=== PATIENT | male | born 1975 | race Two or more races ===

== ENCOUNTER 2019-09-15 03:30 | Emergency (ER) | payer BC, SELFPAY ==
--- NOTE | 2019-09-15 04:01 | EDM.PDOC ---
ED HPI GENERAL MEDICAL PROBLEM - General Chief Complaint: Chest Pain Stated Complaint: [facility] Time Seen by Provider: 09/15/19 03:37 Source of Information: Reports: Patient, Family (Son) History Limitations: Reports: No Limitations - History of Present Illness INITIAL COMMENTS - FREE TEXT/NARRATIVE: Mr. Rincon is a very pleasant 44 or old man with a past medical history significant for hypertension and untreated dyslipidemia, who states that he woke up around 01:30 to 02:00 this morning in order to urinate. He then went back to bed, but woke up again shortly thereafter having to urinate again. He returned to bed the second time, he developed sudden onset left-sided chest pressure and entire left upper extremity tingling. Initially, the sensation in his left chest was a pain, however, after about 5 minutes, it subsided into a discomfort, which has persisted. His left upper extremity tingling has persisted unchanged. In addition, the patient states that he felt dyspneic, lightheaded, and nauseated. No diaphoresis or sense of impending doom. No prior similar symptoms. EMS performed an ECG, which showed no ischemic changes. EMS gave the patient nitroglycerin spray, IV Zofran, and a baby aspirin. Patient reports that his symptoms did not change following those treatments. 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 He reports that he has never suffered chest discomfort or dyspnea while working. The patient's PCP is Dr. Toby Lopez. The patient has not received an influenza vaccine, but declined an offer for one here today. Left Chest Pain Score (Numeric/FACES): 2 - Related Data Allergies Allergy/AdvReac Type Severity Reaction Status Date / Time morphine Allergy Bradycardia Verified 09/15/19 03:39 Home Meds: Home Meds Losartan/Hydrochlorothiazide [Hyzaar 50-12.5 Tablet] 12.5 mg PO DAILY 09/15/19 [ History] Past Medical History Cardiovascular History: Reports: High Cholesterol (untreated), Hypertension Endocrine/Metabolic History: Reports: Obesity/BMI 30+ - Past Surgical History HEENT Surgical History: Reports: Oral Surgery (wisdom teeth extraction) GI Surgical History: Reports: Cholecystectomy (2010), Other (See Below) ( Hemorrhoidectomy x 2) Neurological Surgical History: Reports: Lumbar Spine (Microdiscectomy) Musculoskeletal Surgical History: Reports: Arthroscopic Knee (left) Social & Family History - Tobacco Use Smoking Status *Q: Former Smoker Month/Year Tobacco Last Used: Smoked as a teenager - Caffeine Use Caffeine Use: Reports: Coffee, Soda - Alcohol Use Alcohol Use History: Yes Alcohol Use Frequency: Socially - Recreational Drug Use Recreational Drug Use: Yes Drug Use in Last 12 Months: No Recreational Drug Type: Reports: Marijuana/Hashish (last smoked 1994) - Living Situation & Occupation Living situation: Reports: , with Spouse, with Family (3 kids + mother-in -law) Occupation: Employed ([employer]) ED ROS GENERAL - Review of Systems Review Of Systems: Comprehensive ROS is negative, except as noted in HPI. Musculoskeletal: Reports: Back Pain (chronic) ED EXAM, GENERAL - Physical Exam Exam: See Below Exam Limited By: No Limitations General Appearance: Alert, WD/WN, No Apparent Distress Eye Exam: Bilateral Eye: EOMI, Normal Inspection Ears: Normal External Exam, Hearing Grossly Normal Nose: Normal Inspection Throat/Mouth: Normal Inspection, Normal Lips, Normal Voice, No Airway Compromise Head: Atraumatic, Normocephalic Neck: Normal Inspection, Full Range of Motion Respiratory/Chest: No Respiratory Distress, Lungs Clear, Normal Breath Sounds, No Accessory Muscle Use, Other (Reproducible tenderness to palpation of the patient's left pectoralis muscle) Cardiovascular: Normal Peripheral Pulses, Regular Rate, Rhythm, No Edema, No Gallop, No JVD, No Murmur, No Rub Peripheral Pulses: 4+: Radial (L), Radial (R) GI/Abdominal: Normal Bowel Sounds, Soft, Non-Tender (including the epigastrium) , No Organomegaly, No Distention, No Abnormal Bruit, No Mass (Male) Exam: Deferred Rectal (Males) Exam: Deferred Back Exam: Normal Inspection, Full Range of Motion, NT Extremities: Normal Inspection, Normal Range of Motion, No Pedal Edema, Normal Capillary Refill Neurological: Alert, Oriented, Normal Cognition, No Motor/Sensory Deficits Psychiatric: Normal Affect Skin Exam: Warm, Dry, Intact, Normal Color, No Rash EKG INTERPRETATION EKG Date: 09/15/19 Time: 03:29 Rhythm: NSR Rate (Beats/Min): 76 [place]: Normal P-Wave: Present QRS: Normal (Late transition) ST-T: Normal QT: Normal Comparison: NA - No Prior EKG Course - Vital Signs Last Recorded V/S: Last Vital Signs Temp 36.6 C 09/15/19 03:32 Pulse 80 09/15/19 03:32 Resp 12 09/15/19 03:32 BP 141/96 H 09/15/19 03:32 Pulse Ox 96 09/15/19 03:32 - Orders/Labs/Meds Orders: Active Orders 24 hr Category Date Time Status EKG Documentation Completion [RC] STAT Care 09/15/19 03:54 Active Labs: Laboratory Tests 09/15/19 09/15/19 09/15/19 Range/Units 04:10 04:10 04:10 WBC 7.86 (4.23-9.07) K/mm3 RBC 5.51 (4.63-6.08) M/mm3 Hgb 16.5 (13.7-17.5) gm/dl Hct 48.1 (40.1-51.0) % MCV 87.3 (79.0-92.2) fl MCH 29.9 (25.7-32.2) pg MCHC 34.3 (32.2-35.5) g/dl RDW Std Deviation 44.3 H (35.1-43.9) fL Plt Count 206 (163-337) K/mm3 MPV 10.0 (9.4-12.3) fl Neut % (Auto) 61.0 (34.0-67.9) % Lymph % (Auto) 24.0 (21.8-53.1) % [place] % (Auto) 11.1 (5.3-12.2) % Eos % (Auto) 2.8 (0.8-7.0) Baso % (Auto) 0.3 (0.1-1.2) % Neut # (Auto) 4.80 (1.78-5.38) K/mm3 Lymph # (Auto) 1.89 (1.32-3.57) K/mm3 [place] # (Auto) 0.87 H (0.30-0.82) K/mm3 Eos # (Auto) 0.22 (0.04-0.54) K/mm3 Baso # (Auto) 0.02 (0.01-0.08) K/mm3 D-Dimer, Quantitative < 0.19 L (0.19-0.50) mg/L Sodium 140 (136-145) mEq/L Potassium 3.4 L (3.5-5.1) mEq/L Chloride 104 (98-107) mEq/L Carbon Dioxide 25 (21-32) mEq/L Anion Gap 14.4 (5-15) BUN 15 (7-18) mg/dL Creatinine 1.0 (0.7-1.3) mg/dL Est Cr Clr Drug Dosing 107.32 mL/min Estimated GFR (MDRD) > 60 (>60) mL/min BUN/Creatinine Ratio 15.0 (14-18) Glucose 122 H (74-106) mg/dL Calcium 9.2 (8.5-10.1) mg/dL Total Bilirubin 0.4 (0.2-1.0) mg/dL AST 16 (15-37) U/L ALT 46 (16-63) U/L Alkaline Phosphatase 88 (46-116) U/L Troponin I < 0.017 (0.00-0.056) ng/mL Total Protein 7.1 (6.4-8.2) g/dl Albumin 3.7 (3.4-5.0) g/dl Globulin 3.4 gm/dL Albumin/Globulin Ratio 1.1 (1-2) 09/15/19 Range/Units 06:23 WBC (4.23-9.07) K/mm3 RBC (4.63-6.08) M/mm3 Hgb (13.7-17.5) gm/dl Hct (40.1-51.0) % MCV (79.0-92.2) fl MCH (25.7-32.2) pg MCHC (32.2-35.5) g/dl RDW Std Deviation (35.1-43.9) fL Plt Count (163-337) K/mm3 MPV (9.4-12.3) fl Neut % (Auto) (34.0-67.9) % Lymph % (Auto) (21.8-53.1) % [place] % (Auto) (5.3-12.2) % Eos % (Auto) (0.8-7.0) Baso % (Auto) (0.1-1.2) % Neut # (Auto) (1.78-5.38) K/mm3 Lymph # (Auto) (1.32-3.57) K/mm3 [place] # (Auto) (0.30-0.82) K/mm3 Eos # (Auto) (0.04-0.54) K/mm3 Baso # (Auto) (0.01-0.08) K/mm3 D-Dimer, Quantitative (0.19-0.50) mg/L Sodium (136-145) mEq/L Potassium (3.5-5.1) mEq/L Chloride (98-107) mEq/L Carbon Dioxide (21-32) mEq/L Anion Gap (5-15) BUN (7-18) mg/dL Creatinine (0.7-1.3) mg/dL Est Cr Clr Drug Dosing mL/min Estimated GFR (MDRD) (>60) mL/min BUN/Creatinine Ratio (14-18) Glucose (74-106) mg/dL Calcium (8.5-10.1) mg/dL Total Bilirubin (0.2-1.0) mg/dL AST (15-37) U/L ALT (16-63) U/L Alkaline Phosphatase (46-116) U/L Troponin I < 0.017 (0.00-0.056) ng/mL Total Protein (6.4-8.2) g/dl Albumin (3.4-5.0) g/dl Globulin gm/dL Albumin/Globulin Ratio (1-2) - Re-Assessments/Exams Free Text/Narrative Re-Assessment/Exam: 09/15/19 03:55 I'm not sure that I am going to be able to explain the patient's left arm tingling, but his chest pain does not appear to be cardiac in etiology. 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 His pain came on suddenly, and improved without any treatment. The ECG acquired by EMS was normal, and when they gave him nitroglycerin, he reports that it did not change his symptoms. Here in the ED, his ECG is completely normal despite continuation of discomfort. Lastly, his chest discomfort is reproducible by palpating his left pectoralis muscle, strongly suggesting a musculoskeletal etiology. I have ordered a standard cardiac evaluation that I anticipate will be normal. 01/09/20 04:31 2-view chest radiograph appears to be grossly normal. The cardiac silhouette is within normal limits. No pulmonary vascular congestion. No pleural effusions. No focal infiltrate. No pneumothorax. Formal read per the Radiologist pending. 09/15/19 05:01 The patient's CBC is unremarkable. His CMP is remarkable for potassium slightly depressed at 3.4 and a blood glucose slightly elevated at 122, with the remainder of his CMP being unremarkable. His troponin is undetectably low. His D-dimer is undetectably low. I have ordered a repeat troponin to be drawn at 06:00, 4 hours after the onset of his symptoms. 09/15/19 07:39 The patient's repeat troponin has remained undetectably low. As above, the patient's chest pain appears to be musculoskeletal in etiology. I will discharge him home. Departure - Departure Time of Disposition: 07:45 Disposition: Home, Self-Care 01 Condition: Good Clinical Impression: Musculoskeletal chest pain - Discharge Information *PRESCRIPTION DRUG MONITORING PROGRAM REVIEWED*: Not Applicable *COPY OF PRESCRIPTION DRUG MONITORING REPORT IN PATIENT EUN: Not Applicable Referrals: Toby Lopez Jr, MD [Primary Care Provider] - Forms: ED Department Discharge Additional Instructions: You were seen in the emergency room after developing left-sided chest pain and left arm tingling. Workup in the ER included blood work, a chest x-ray, and an ECG. Your entire workup was unremarkable. You have not suffered a heart attack. You do not have a blood clot in your lungs. You do not have pneumonia. You do not have a collapsed lung. Based on your history, physical exam, and ER tests, your symptoms are most likely due to a left pectoralis muscle strain. We recommend that you take [id number] ibuprofen, 2-3 tablets (400-600 mg) every 8 hours, with food, as needed for discomfort. Follow-up with your PCP, Dr. Toby Lopez, as needed. If any other problems, please do not hesitate to return to the ER. Sepsis Event Note - Evaluation Sepsis Screening Result: No Definite Risk - Focused Exam Vital Signs: Vital Signs Temp Pulse Resp BP Pulse Ox 09/15/19 03:32 36.6 C 80 12 141/96 H 96 Date Exam was Performed: 09/15/19 Time Exam was Performed: 07:39 - My Orders Last 24 Hours: My Active Orders 09/15/19 03:54 EKG Documentation Completion [RC] STAT - Assessment/Plan Last 24 Hours: My Active Orders 09/15/19 03:54 EKG Documentation Completion [RC] STAT
--- NOTE | 2019-09-15 07:34 | CR ---
Chest: Two views of the chest are obtained. Comparison: No prior chest x-ray, prior chest CT of 05/07/18. Findings: Slight scarring is felt to be present within the lingula. Lungs otherwise are clear. Heart size and mediastinum are normal. Bony structures appear without acute finding. Small metallic densities presumably due to old injury are seen overlying the right distal scapula close to the acromioclavicular joint. Impression: 1. Findings as noted above believed to be incidental. 2. Nothing acute is definitely appreciated on two-view chest x-ray. Diagnostic code #2 This report was dictated in [place] Standard Time
== END 2019-09-15 07:57 | disposition home or self-care (01) ==
LOC: JD.ED 03:30
DX: R07.89 Other chest pain (principal); I10 Essential (primary) hypertension; Z79.899 Other long term (current) drug therapy; Z87.891 Personal history of nicotine dependence; Z88.6 Allergy status to analgesic agent
CPT/HCPCS: 36415; 71046; 71046-26; 80053; 84484; 85025; 85379; 93005; 93010; 99283; 99285-25

== ENCOUNTER 2020-07-07 18:49 | Emergency (ER) | payer SELFPAY ==
[2020-07-07] MEDS ORDERED: Ondansetron 4 MG/2 ML SDV IVPUSH ONE (19:18)
[2020-07-07] MEDS ORDERED: LORazepam 2 MG/ML SDV IVPUSH ONE (19:18)
[2020-07-07] MEDS ORDERED: Ketorolac 30 MG/ML SDV IVPUSH ONE (19:18)
[2020-07-07] MEDS ORDERED: diphenhydrAMINE 50 MG/ML SDV IVPUSH ONE (19:18)
[2020-07-07] MEDS ORDERED: Sodium Chloride 0.9% 1,000 ML IV SCH (19:30)
--- NOTE | 2020-07-07 19:38 | EDM.PDOC ---
ED HPI GENERAL MEDICAL PROBLEM - General Chief Complaint: Headache Stated Complaint: [facility] Time Seen by Provider: 07/07/20 18:59 Source of Information: Reports: Patient History Limitations: Reports: No Limitations - History of Present Illness INITIAL COMMENTS - FREE TEXT/NARRATIVE: This is a 45-year-old male. At onset of headache that was behind his eyes about 4 days ago. Nothing seemed to get rid of it and normally he takes Excedrin but that did not seem to help. About 2 days ago he got some Toradol and Benadryl from the ambulance service and [facility] if I understand correctly and that did not seem to help in either. Now the headache is moved to the back of his head it is throbbing and pounding any cannot seem to get rid of it. He said 2 days ago he had some double vision and he is dizzy when he gets up. Today he developed some facial tingling and left hand tingling with nausea photophobia and bilateral jaw aching. Normally has headaches last for 24 hours or less depending if when he takes the Excedrin. This 1 has lasted much longer. He denies any significant neck pain or neck stiffness. He has had no fever no chills no cough no congestion. He denies any exposure to Covid. - Related Data Allergies Allergy/AdvReac Type Severity Reaction Status Date / Time morphine Allergy Severe Bradycardia Verified 07/07/20 18:58 Home Meds: Home Meds Losartan/Hydrochlorothiazide [Hyzaar 50-12.5 Tablet] 12.5 mg PO DAILY 09/15/19 [History] Acetaminophen/Butalbital/Caff [Fioricet 325-50-40 MG] 1 each PO Q6H PRN #15 tab 07/07/20 [Rx] Past Medical History Cardiovascular History: Reports: High Cholesterol, Hypertension Musculoskeletal History: Reports: Back Pain, Chronic Endocrine/Metabolic History: Reports: Obesity/BMI 30+ - Past Surgical History HEENT Surgical History: Reports: Oral Surgery GI Surgical History: Reports: Cholecystectomy, Other (See Below) Neurological Surgical History: Reports: Lumbar Spine Musculoskeletal Surgical History: Reports: Arthroscopic Knee Social & Family History - Family History Family Medical History: Noncontributory - Caffeine Use Caffeine Use: Reports: Coffee, Soda - Living Situation & Occupation Living situation: Reports: , with Spouse, with Family (3 kids + [id number]) Occupation: Employed ([employer]) ED ROS GENERAL - Review of Systems Review Of Systems: See Below Constitutional: Denies: Fever, Chills HEENT: Denies: Rhinitis, Sinus Problem Respiratory: Denies: Shortness of Breath, Cough Cardiovascular: Denies: Chest Pain Endocrine: Reports: No Symptoms GI/Abdominal: Reports: Nausea. Denies: Abdominal Pain, Constipation, Diarrhea, Vomiting : Reports: No Symptoms Musculoskeletal: Denies: Neck Pain Skin: Reports: No Symptoms Neurological: Reports: Other (With this headache complains of tingling in his left ear and his left hand) Psychiatric: Reports: No Symptoms Hematologic/Lymphatic: Reports: No Symptoms Immunologic: Reports: No Symptoms - Physical Exam Exam: See Below Exam Limited By: No Limitations General Appearance: Alert, WD/WN, No Apparent Distress Eye Exam: Bilateral Eye: Normal Inspection Ears: Normal External Exam, Normal Canal, Normal TMs Nose: Normal Inspection Throat/Mouth: Normal Inspection, Normal Lips, Normal Oropharynx, Normal Voice, No Airway Compromise Head Exam: Normocephalic Neck: Supple, Other (No nuchal rigidity) Respiratory/Chest: No Respiratory Distress, Lungs Clear, Normal Breath Sounds Cardiovascular: Regular Rate, Rhythm, No Murmur GI/Abdominal: Soft, Non-Tender Neuro Exam (Abbreviated): Alert, Oriented, No Motor/Sensory Deficits, Other (Planes of tingling in his left ear and face and his left hand and forearm. There is no motor deficit.) Back Exam: Full Range of Motion Extremities: Normal Inspection, Normal Range of Motion Psychiatric: Normal Affect, Normal Mood Skin Exam: Warm, Dry Course - Vital Signs Last Recorded V/S: Last Vital Signs Temp 97.4 F 07/07/20 18:55 Pulse 81 07/07/20 18:55 Resp 16 07/07/20 18:55 BP 150/100 H 07/07/20 18:55 Pulse Ox 92 L 07/07/20 18:55 - Orders/Labs/Meds Orders: Active Orders 24 hr Category Date Time Status Head wo Cont [CT] Stat Exams 07/07/20 19:17 Ordered Sodium Chloride 0.9% [Normal Saline] 1,000 ml Med 07/07/20 19:30 Active IV ASDIRECTED Medication Orders Sodium Chloride (Normal Saline) 1,000 mls @ 1,000 mls/hr IV ASDIRECTED NIKHIL Last Admin: 07/07/20 19:38 Dose: 1,000 mls/hr Documented by: BLAZE Labs: Laboratory Tests 07/07/20 07/07/20 07/07/20 Range/Units 18:55 18:55 19:47 WBC 9.24 H (4.23-9.07) K/mm3 RBC 6.04 (4.63-6.08) M/mm3 Hgb 17.8 H (13.7-17.5) gm/dl Hct 53.4 H (40.1-51.0) % MCV 88.4 (79.0-92.2) fl MCH 29.5 (25.7-32.2) pg MCHC 33.3 (32.2-35.5) g/dl RDW Std Deviation 46.2 H (35.1-43.9) fL Plt Count 246 (163-337) K/mm3 MPV 10.2 (9.4-12.3) fl Neut % (Auto) 63.9 (34.0-67.9) % Lymph % (Auto) 23.3 (21.8-53.1) % [place] % (Auto) 7.9 (5.3-12.2) % Eos % (Auto) 3.1 (0.8-7.0) Baso % (Auto) 0.4 (0.1-1.2) % Neut # (Auto) 5.90 H (1.78-5.38) K/mm3 Lymph # (Auto) 2.15 (1.32-3.57) K/mm3 [place] # (Auto) 0.73 (0.30-0.82) K/mm3 Eos # (Auto) 0.29 (0.04-0.54) K/mm3 Baso # (Auto) 0.04 (0.01-0.08) K/mm3 Manual Slide Review Abnormal smear Sodium 139 (136-145) mEq/L Potassium 3.7 (3.5-5.1) mEq/L Chloride 103 (98-107) mEq/L Carbon Dioxide 29 (21-32) mEq/L Anion Gap 10.7 (5-15) BUN 21 H (7-18) mg/dL Creatinine 1.0 (0.7-1.3) mg/dL Est Cr Clr Drug Dosing 106.18 mL/min Estimated GFR (MDRD) > 60 (>60) mL/min BUN/Creatinine Ratio 21.0 H (14-18) Glucose 110 H (74-106) mg/dL Calcium 9.3 (8.5-10.1) mg/dL Total Bilirubin 0.4 (0.2-1.0) mg/dL AST 22 (15-37) U/L ALT 52 (16-63) U/L Alkaline Phosphatase 95 (46-116) U/L Total Protein 7.5 (6.4-8.2) g/dl Albumin 3.7 (3.4-5.0) g/dl Globulin 3.8 gm/dL Albumin/Globulin Ratio 1.0 (1-2) SARS-CoV-2 RNA (KELLY) Negative (NEGATIVE) Meds: Medications Generic Name Dose Route Start Last Admin Trade Name Freq PRN Reason Stop Dose Admin Sodium Chloride 1,000 mls @ 1,000 mls/hr 07/07/20 19:30 07/07/20 19:38 Normal Saline IV 1,000 mls/hr ASDIRECTED NIKHIL Administration Discontinued Medications Generic Name Dose Route Start Last Admin Trade Name Freq PRN Reason Stop Dose Admin Diphenhydramine HCl 25 mg 07/07/20 19:18 07/07/20 19:41 Benadryl IVPUSH 07/07/20 19:19 25 mg ONETIME ONE Administration Ketorolac Tromethamine 30 mg 07/07/20 19:18 07/07/20 19:39 Toradol IVPUSH 07/07/20 19:19 30 mg ONETIME ONE Administration Lorazepam 0.5 mg 07/07/20 19:18 07/07/20 19:40 Ativan IVPUSH 07/07/20 19:19 0.5 mg ONETIME ONE Administration Ondansetron HCl 4 mg 07/07/20 19:18 07/07/20 19:39 Zofran IVPUSH 07/07/20 19:19 4 mg ONETIME ONE Administration - Radiology Interpretation Free Text/Narrative:: CT scan of the head does not show any acute abnormality of the brain or skull. - Re-Assessments/Exams Free Text/Narrative Re-Assessment/Exam: 07/07/20 21:51 I spoke to the patient regarding his CT scan of his head. He states he is feeling a little better. He wants to go home. I will provide some Fioricet for his headache to be used tomorrow. He is to follow-up with his family doctor regarding this headache if it continues into the week. Departure - Departure Time of Disposition: 21:52 Disposition: Home, Self-Care 01 Condition: Fair Clinical Impression: Nausea, Photophobia Migraine headache Qualifiers: Migraine type: unspecified Status migrainosus presence: without status migrainosus Intractability: not intractable Qualified Code(s): G43.909 - Migraine, unspecified, not intractable, without status migrainosus - Discharge Information *PRESCRIPTION DRUG MONITORING PROGRAM REVIEWED*: Not Applicable *COPY OF PRESCRIPTION DRUG MONITORING REPORT IN PATIENT EUN: Not Applicable Prescriptions: Acetaminophen/Butalbital/Caff [Fioricet 325-50-40 MG] 1 each PO Q6H PRN #15 tab PRN Reason: Headache Instructions: Migraine Headache, [id number] Referrals: Toby Lopez Jr, MD [Primary Care Provider] - Forms: ED Department Discharge Additional Instructions: When you get home get in a dark room and sleep as long as you can, when you wake up take a Fioricet or an Excedrin right away, make sure you continue to drink lots of fluids, follow-up with your family doctor this coming week if the headache persists, return to the ER if needed Sepsis Event Note (ED) - Evaluation Sepsis Screening Result: No Definite Risk - Focused Exam Vital Signs: Vital Signs Temp Pulse Resp BP Pulse Ox 07/07/20 18:55 97.4 F 81 16 150/100 H 92 L - My Orders Last 24 Hours: My Active Orders 07/07/20 19:17 Head wo Cont [CT] Stat 07/07/20 19:30 Sodium Chloride 0.9% [Normal Saline] 1,000 ml IV ASDIRECTED - Assessment/Plan Last 24 Hours: My Active Orders 07/07/20 19:17 Head wo Cont [CT] Stat 07/07/20 19:30 Sodium Chloride 0.9% [Normal Saline] 1,000 ml IV ASDIRECTED
[2020-07-07] MEDS ORDERED: Acetaminophen/Butalbital/Caffeine 325-50-40 MG Tab PO ONE (22:00)
--- NOTE | 2020-07-09 09:50 | CT ---
"PROCEDURE INFORMATION: Exam: CT Head Without Contrast Exam date and time: 07/07/2020 7:14 PM Age: 45 years old Clinical indication: Pain; Patient HX: Headache with left face and arm tingling TECHNIQUE: Imaging protocol: Computed tomography of the head without contrast. Sagittal and coronal reformatted images were created and reviewed. Radiation optimization: All CT scans at this facility use at least one of these dose optimization techniques: automated exposure control; mA and/or kV adjustment per patient size (includes targeted exams where dose is matched to clinical indication); or iterative reconstruction. COMPARISON: No relevant prior studies available. FINDINGS: Brain: No acute intracranial hemorrhage. No acute infarct. No intra-axial or extra-axial masses. Graywhite matter differentiation is preserved. No cerebral edema. No extra-axial fluid collections. No midline shift. No evidence for Chiari 1 malformation. Cerebral ventricles: No hydrocephalus. Bones/joints: No acute fracture. Paranasal sinuses: Visualized paranasal sinuses are clear. Mastoid air cells: Visualized mastoid air cells are clear. Orbital cavity: No acute abnormality in the visualized orbits. Soft tissues: No acute abnormality of the extracranial soft tissues. IMPRESSION: No acute abnormality of the brain. Thank you for allowing us to participate in the care of your patient. Dictated and Authenticated by: Willow Payne MD DAVILA, RUBEN | Final Radiology Report CONFIDENTIALITY STATEMENT This report is intended only for use by the referring physician, and only in accordance with law. If you received this in error, call [phone]. Page 2 of 2 07/07/2020 8:36 PM Central Time ([place] & [place]) VIJAY"
== END 2020-07-07 22:30 | disposition home or self-care (01) ==
LOC: JD.ED 18:49
DX: G43.909 Migraine, unspecified, not intractable, without status migrainosus (principal); I10 Essential (primary) hypertension; E66.9 Obesity, unspecified; Z88.5 Allergy status to narcotic agent; Z90.49 Acquired absence of other specified parts of digestive tract; Z20.828 Contact with and (suspected) exposure to other viral communicable diseases; Z68.37 Body mass index [BMI] 37.0-37.9, adult
CPT/HCPCS: 36415; 70450; 80053; 85025; 87635; 96374; 96375; 99284; A9270; J1200; J1885; J2060; J2405; J7030; U0002

== ENCOUNTER 2020-07-08 21:21 | Emergency (ER) | payer SELFPAY | END 2020-07-08 22:08 | disposition left against medical advice (07) | LOC: JD.ED 21:21 | DX: Z53.21 Procedure and treatment not carried out due to patient leaving prior to being seen by health care provider (principal) | CPT/HCPCS: 82962 ==

== ENCOUNTER 2021-03-13 00:27 | Emergency (ER) | payer MEDICAID ==
[2021-03-13] MEDS ORDERED: Sodium Chloride 0.9% 1,000 ML IV ONE (00:37)
[2021-03-13] MEDS ORDERED: Nitroglycerin 2% Oint 1 GM UD Packet TOP ONE (00:38)
[2021-03-13] MEDS ORDERED: Acetaminophen 325 MG Tab PO ONE (00:39)
--- NOTE | 2021-03-13 00:40 | EDM.PDOC ---
ED HPI GENERAL MEDICAL PROBLEM - General Chief Complaint: Chest Pain Stated Complaint: JET AMB Time Seen by Provider: 03/13/21 00:30 Source of Information: Reports: Patient, EMS History Limitations: Reports: No Limitations - History of Present Illness INITIAL COMMENTS - FREE TEXT/NARRATIVE: Patient is a 45-year-old male who is complaining of having chest tightness 7 out of 10 intensity starting approximately 1 hour prior to arrival and feeling nauseous with this. He denies any diaphoresis or any shortness of breath. He denies symptoms are worse with exertion. He does state the pain radiates to his neck and to his right arm which he feels at times is tingling. He denies any bloody or tarry stools or any swelling to his ankles. He states his chest pain is worse when he takes a deep breath. He has not been coughing and denies any fever or chills. He has taken nothing for his above symptoms. Patient is not a cigarette smoker and denies using any street drugs. He does have a history of high blood pressure for which he is on losartan but denies any other medical problems. He has never had any cardiac work-up. Patient also has a history of hypercholesterolemia but is not currently on any meds for this. He has had his gallbladder out and lumbar spinal surgery. Did receive a full aspirin in route. Patient has informed us that yesterday on 10 March he had been drinking heavily celebrating March 10. Onset: Today, Sudden Duration: Hour(s): (one) Location: Reports: Chest Quality: Reports: Pressure Severity: Moderate Improves with: Reports: Rest Worsens with: Reports: Breathing Associated Symptoms: Reports: No Other Symptoms Treatments TODDLER NANNY: Reports: Aspirin Left Chest Pain Score (Numeric/FACES): 5 - Related Data Allergies Allergy/AdvReac Type Severity Reaction Status Date / Time morphine Allergy Severe Bradycardia Verified 03/13/21 00:45 Home Meds: Home Meds Losartan/Hydrochlorothiazide [Hyzaar 50-12.5 Tablet] 12.5 mg PO DAILY 09/15/19 [History] LORazepam [Ativan] 1 mg PO Q8HR PRN #10 tablet 03/13/21 [Rx] amLODIPine [Norvasc] 5 mg PO DAILY #30 tab 03/13/21 [Rx] Past Medical History Cardiovascular History: Reports: High Cholesterol, Hypertension Musculoskeletal History: Reports: Back Pain, Chronic Endocrine/Metabolic History: Reports: Obesity/BMI 30+ - Past Surgical History HEENT Surgical History: Reports: Oral Surgery GI Surgical History: Reports: Cholecystectomy, Other (See Below) Neurological Surgical History: Reports: Lumbar Spine Musculoskeletal Surgical History: Reports: Arthroscopic Knee Social & Family History - Family History Family Medical History: No Pertinent Family History - Caffeine Use Caffeine Use: Reports: Coffee, Soda - Living Situation & Occupation Living situation: Reports: , with Spouse, with Family (3 kids + [id number]) Occupation: Employed ([employer]) ED ROS GENERAL - Review of Systems Review Of Systems: Comprehensive ROS is negative, except as noted in HPI. ED EXAM, GENERAL - Physical Exam Exam: See Below Exam Limited By: No Limitations General Appearance: Alert, No Apparent Distress Eye Exam: Bilateral Eye: Normal Inspection Head: Normocephalic Neck: Normal Inspection, Supple Respiratory/Chest: No Respiratory Distress, Lungs Clear, Normal Breath Sounds, No Accessory Muscle Use Cardiovascular: Regular Rate, Rhythm, No JVD Back Exam: Normal Inspection Extremities: Normal Inspection, No Pedal Edema Neurological: Alert, Oriented, Normal Cognition Psychiatric: Normal Affect, Normal Mood Skin Exam: Warm, Dry, Normal Color #1 Interpretation Rhythm: NSR [place]: Normal P-Wave: Present QRS: Normal ST-T: Normal QT: Normal EKG Interpretation Comments: Normal sinus rhythm without any ST or T wave changes. Course - Vital Signs Text/Narrative:: All of patient's lab work are unremarkable including D-dimer and cardiac enzymes x2. At 1 point he became very anxious was insistent he could not breathe and pulled off his oxygen though his O2 sats were 99% at that time. After receiving 1 mg lorazepam his symptoms resolved and he is feeling comfortable. Patient did receive some Nitropaste upon his arrival and I gave him a Norvasc 5 mg for his blood pressure remaining somewhat elevated. Chest x-ray shows no change from previous. Patient is aware of all these results and that I feel that his chest discomfort is most likely esophagitis from his drinking yesterday though I am recommending that he get a stress test done as soon as possible. I will discharge him home with a prescription for more Norvasc and for lorazepam which he may use as needed. He should check with his PCP whether they want to contin ue him on the amlodipine. He should return to emergency department if his symptoms worsen or he has any exertional symptoms. [id number] acid blocking medicine and antiacids for the next several days. Last Recorded V/S: Last Vital Signs Temp 97.5 F 03/13/21 00:37 Pulse 70 03/13/21 04:01 Resp 18 03/13/21 04:01 BP 138/83 03/13/21 04:01 Pulse Ox 98 03/13/21 04:01 - Orders/Labs/Meds Orders: Active Orders 24 hr Category Date Time Status EKG Documentation Completion [RC] ASDIRECTED Care 03/13/21 01:15 Active Chest 1V Frontal [CR] Stat Exams 03/13/21 00:36 Taken EKG 12 Lead [EK] Stat Ther 03/13/21 01:15 Ordered Labs: Laboratory Tests 03/13/21 03/13/21 03/13/21 Range/Units 00:58 00:58 00:58 WBC 7.58 (4.23-9.07) K/mm3 RBC 5.30 (4.63-6.08) M/mm3 Hgb 16.0 D (13.7-17.5) gm/dl Hct 47.3 (40.1-51.0) % MCV 89.2 (79.0-92.2) fl MCH 30.2 (25.7-32.2) pg MCHC 33.8 (32.2-35.5) g/dl RDW Std Deviation 45.1 H (35.1-43.9) fL Plt Count 225 (163-337) K/mm3 MPV 9.9 (9.4-12.3) fl Neutrophils % (Manual) 61 H (40-60) % Band Neutrophils % 5 (0-10) % Lymphocytes % (Manual) 20 (20-40) % Atypical Lymphs % 0 % Monocytes % (Manual) 9 (2-10) % Eosinophils % (Manual) 5 (0.8-7.0) % Basophils % (Manual) 0 L (0.2-1.2) Platelet Estimate Adequate Plt Morphology Comment Normal RBC Morph Comment Normal PT 10.3 (9.7-12.0) SECONDS INR 0.96 D-Dimer, Quantitative < 0.19 L (0.19-0.50) mg/L Sodium 142 (136-145) mEq/L Potassium 3.5 (3.5-5.1) mEq/L Chloride 106 (98-107) mEq/L Carbon Dioxide 25 (21-32) mEq/L Anion Gap 14.5 (5-15) BUN 19 H (7-18) mg/dL Creatinine 1.1 (0.7-1.3) mg/dL Est Cr Clr Drug Dosing 96.52 mL/min Estimated GFR (MDRD) > 60 (>60) mL/min BUN/Creatinine Ratio 17.3 (14-18) Glucose 128 H (70-99) mg/dL Calcium 8.8 (8.5-10.1) mg/dL Total Bilirubin 0.3 (0.2-1.0) mg/dL AST 21 (15-37) U/L ALT 50 (16-63) U/L Alkaline Phosphatase 82 (46-116) U/L CK-MB (CK-2) 0.8 (0-3.6) ng/ml Troponin I < 0.017 (0.00-0.056) ng/mL Total Protein 6.7 (6.4-8.2) g/dl Albumin 3.4 (3.4-5.0) g/dl Globulin 3.3 gm/dL Albumin/Globulin Ratio 1.0 (1-2) 03/13/21 Range/Units 03:02 WBC (4.23-9.07) K/mm3 RBC (4.63-6.08) M/mm3 Hgb (13.7-17.5) gm/dl Hct (40.1-51.0) % MCV (79.0-92.2) fl MCH (25.7-32.2) pg MCHC (32.2-35.5) g/dl RDW Std Deviation (35.1-43.9) fL Plt Count (163-337) K/mm3 MPV (9.4-12.3) fl Neutrophils % (Manual) (40-60) % Band Neutrophils % (0-10) % Lymphocytes % (Manual) (20-40) % Atypical Lymphs % % Monocytes % (Manual) (2-10) % Eosinophils % (Manual) (0.8-7.0) % Basophils % (Manual) (0.2-1.2) Platelet Estimate Plt Morphology Comment RBC Morph Comment PT (9.7-12.0) SECONDS INR D-Dimer, Quantitative (0.19-0.50) mg/L Sodium (136-145) mEq/L Potassium (3.5-5.1) mEq/L Chloride (98-107) mEq/L Carbon Dioxide (21-32) mEq/L Anion Gap (5-15) BUN (7-18) mg/dL Creatinine (0.7-1.3) mg/dL Est Cr Clr Drug Dosing mL/min Estimated GFR (MDRD) (>60) mL/min BUN/Creatinine Ratio (14-18) Glucose (70-99) mg/dL Calcium (8.5-10.1) mg/dL Total Bilirubin (0.2-1.0) mg/dL AST (15-37) U/L ALT (16-63) U/L Alkaline Phosphatase (46-116) U/L CK-MB (CK-2) (0-3.6) ng/ml Troponin I < 0.017 (0.00-0.056) ng/mL Total Protein (6.4-8.2) g/dl Albumin (3.4-5.0) g/dl Globulin gm/dL Albumin/Globulin Ratio (1-2) Meds: Medications Discontinued Medications Generic Name Dose Route Start Last Admin Trade Name Linda PRN Reason Stop Dose Admin Acetaminophen 650 mg 03/13/21 00:39 03/13/21 01:07 Acetaminophen 325 Mg Tab PO 03/13/21 00:40 650 mg NOW ONE Administration Amlodipine Besylate 5 mg 03/13/21 02:52 03/13/21 03:02 Amlodipine 5 Mg Tab PO 03/13/21 02:53 5 mg ONETIME ONE Administration Sodium Chloride 1,000 mls @ 500 mls/hr 03/13/21 00:37 03/13/21 01:03 Normal Saline IV 03/13/21 02:36 500 mls/hr ONETIME ONE Administration Lorazepam 1 mg 03/13/21 02:05 03/13/21 02:15 Lorazepam 1 Mg Tab PO 03/13/21 02:06 1 mg ONETIME ONE Administration Nitroglycerin 1 gm 03/13/21 00:38 03/13/21 01:08 Nitroglycerin 2% Oint 1 Gm Ud Packet TOP 03/13/21 00:39 1 gm ONETIME ONE Administration Departure - Departure Time of Disposition: 04:05 Disposition: Home, Self-Care 01 Condition: Good Clinical Impression: Atypical chest pain, Esophagitis, Panic attack Instructions: Nonspecific Chest Pain, Adult, Esophagitis, Panic Attack, [id number] Referrals: PCP,None [Primary Care Provider] - Smooth Valera MD [Physician] - Forms: ED Department Discharge Additional Instructions: Follow-up with PCP to arrange a stress test this week if possible. Return to ER if symptoms are worse or having exertional chest pain. [id number] Prilosec and antiacids as needed. Lorazepam if needed. Sepsis Event Note (ED) - Focused Exam Vital Signs: Vital Signs Temp Pulse Resp BP BP Pulse Ox 03/13/21 04:01 70 18 138/83 98 03/13/21 03:26 76 153/88 H 03/13/21 03:02 153/88 H 03/13/21 00:37 97.5 F 85 20 148/93 H 97 - My Orders Last 24 Hours: My Active Orders 03/13/21 00:36 Chest 1V Frontal [CR] Stat 03/13/21 01:15 EKG Documentation Completion [RC] ASDIRECTED EKG 12 Lead [EK] Stat - Assessment/Plan Last 24 Hours: My Active Orders 03/13/21 00:36 Chest 1V Frontal [CR] Stat 03/13/21 01:15 EKG Documentation Completion [RC] ASDIRECTED EKG 12 Lead [EK] Stat
[2021-03-13] MEDS ORDERED: LORazepam 1 MG Tab PO ONE (02:05)
[2021-03-13] MEDS ORDERED: amLODIPine 5 MG Tab PO ONE (02:52)
--- NOTE | 2021-03-13 07:29 | CR ---
Chest: Portable view of the chest was obtained. Comparison: Prior chest x-ray of 09/15/19 as well as prior chest CT study of 05/07/18. Heart size and mediastinum are normal. Lungs show no definite acute parenchymal change. Multiple radiopacities are seen overlying the right acromioclavicular joint and shoulder which represents old injury. No acute osseous finding is seen. Impression: 1. Findings as noted above. 2. Nothing acute is appreciated on portable chest x-ray. Diagnostic code #2
== END 2021-03-13 07:27 | disposition home or self-care (01) ==
LOC: JD.ED 00:27
DX: R07.89 Other chest pain (principal); K20.90 Esophagitis, unspecified without bleeding; F41.0 Panic disorder [episodic paroxysmal anxiety]; E78.00 Pure hypercholesterolemia, unspecified; I10 Essential (primary) hypertension; E66.9 Obesity, unspecified; Z88.5 Allergy status to narcotic agent; Z79.899 Other long term (current) drug therapy; Z90.49 Acquired absence of other specified parts of digestive tract; Z68.36 Body mass index [BMI] 36.0-36.9, adult
CPT/HCPCS: 36415; 71045; 80053; 82553; 84484; 85007; 85027; 85379; 85610; 93005; 99285; A9270; J7030

== ENCOUNTER 2021-03-22 00:09 | Emergency (ER) | payer MEDICAID ==
--- NOTE | 2021-03-22 00:41 | EDM.PDOC ---
ED HPI GENERAL MEDICAL PROBLEM - General Chief Complaint: Chest Pain Stated Complaint: [facility] Time Seen by Provider: 03/22/21 00:19 Source of Information: Reports: Patient, Old Records (ED 03/13/2021) History Limitations: Reports: No Limitations - History of Present Illness INITIAL COMMENTS - FREE TEXT/NARRATIVE: Mr. Rincon is a very pleasant 45-year-old gentleman who now presents the ED stating that he developed sudden-onset sharp left-sided chest pain and dyspnea around 23:30 tonight, while watching television. The patient indicates the location of his pain to be his left pectoralis muscle. He states that the pain radiated down his left arm for 10 to 15 minutes, but then resolved. Here in the ED, the patient states that his pain has significantly improved and now feels like a pressure sensation, but has not entirely resolved. The patient states that he checked his blood pressure at home, after the onset of his pain and dyspnea, finding it to be elevated at 197/112. He states that he felt slightly dizzy and slightly nauseated. The patient states that he had virtually identical symptoms prompting him to be seen in this ED on 03/13/2021, after drinking heavily on 03/10/2021. At that time, the patient was found to be hemodynamically stable, afebrile, saturating 98% on room air. He was given Nitropaste shortly after arrival, along with amlodipine 5 mg po, which did not improve his symptoms. He appeared to be anxious, although his physical exam was otherwise unremarkable. Work-up included a CBC, CMP, troponin, CK-MB, D-dimer, INR/PT, portable chest x-ray, and ECG. His entire work-up was unremarkable. He was treated with 1 mg of oral lorazepam, which improved his symptoms. His symptoms were felt to be due to esophagitis. He was discharged home with prescriptions for amlodipine 5 mg po Q day #30 and lorazepam 1 mg po Q 8 hrs prn, #10, and the recommendation that he take [id number] Prilosec, antacids, and lorazepam as needed. He was encouraged to follow-up with his PCP to arrange for a cardiac stress test that week, if possible. The patient tells me at this time that he was subsequently seen at [facility], that he flunked a cardiac stress test and subsequently underwent a coronary angiogram, which showed no coronary disease, but that the rodriguez of his heart were thickened. He states that he was prescribed a cholesterol medication, whose name he does not recall, along with another blood pressure medicine that he was to take twice a day, and KCl. He was to follow-up with his PCP on 03/26/2021. Here in the ED tonight, the patient's initial BP is found to be modestly elevated at 151/102, with mild tachycardia of 107 bpm. He is afebrile, saturating 95% on room air. He appears to be somewhat anxious, but relatively comfortable, in no acute distress. The patient states that he received steroid injections to both of his knees yesterday (03/21/2021). Other than the chest pain, dyspnea, slight dizziness, and slight nausea, the patient denies having a recent fever, chills, sore throat, ear pain, nasal or sinus congestion, cough, palpitations, nausea, vomiting, constipation, diarrhea, abdominal pain, urinary symptoms, recent weight gain or weight loss, recent bloody bowel movements or black bowel movements, recent joint aches, headaches, or rashes. The patient's PCP is Dr. Bjorn Polo. - Related Data Allergies Allergy/AdvReac Type Severity Reaction Status Date / Time morphine Allergy Severe Bradycardia Verified 03/22/21 00:14 Home Meds: Home Meds Losartan/Hydrochlorothiazide [Hyzaar 50-12.5 Tablet] 12.5 mg PO DAILY 09/15/19 [History] LORazepam [Ativan] 1 mg PO Q8HR PRN #10 tablet 03/13/21 [Rx] amLODIPine [Norvasc] 5 mg PO DAILY #30 tab 03/13/21 [Rx] Metoprolol Succinate 12.5 mg PO BID 03/22/21 [History] Potassium Chloride Crystals. 1 dose PO DAILY 03/22/21 [History] atorvaSTATin [Lipitor] 40 mg PO BEDTIME 03/22/21 [History] Past Medical History Cardiovascular History: Reports: High Cholesterol, Hypertension Endocrine/Metabolic History: Reports: Obesity/BMI 30+ - Past Surgical History HEENT Surgical History: Reports: Naso-Sinus Surgery, Oral Surgery (dental extractions) Cardiovascular Surgical History: Reports: Other (See Below) (Coronary angiogram 03/15/2021) GI Surgical History: Reports: Cholecystectomy (2011 or 2012), Colonoscopy (x 1), EGD (x 1) Male Surgical History: Reports: Vasectomy Neurological Surgical History: Reports: Lumbar Spine (microdiscectomy) Musculoskeletal Surgical History: Reports: Arthroscopic Knee (left) Social & Family History - Tobacco Use Tobacco Use Status *Q: Never Tobacco User Second Hand Smoke Exposure: No - Caffeine Use Caffeine Use: Reports: None - Recreational Drug Use Recreational Drug Use: No - Living Situation & Occupation Living situation: Reports: , with Spouse, with Family (3 kids + [id number]) Occupation: Employed ([employer]) ED ROS GENERAL - Review of Systems Review Of Systems: Comprehensive ROS is negative, except as noted in HPI. Musculoskeletal: Reports: Back Pain (chronic) ED EXAM, GENERAL - Physical Exam Exam: See Below Exam Limited By: No Limitations General Appearance: Alert, WD/WN, No Apparent Distress Eye Exam: Bilateral Eye: EOMI, Normal Inspection Ears: Normal External Exam, Hearing Grossly Normal Nose: Normal Inspection Throat/Mouth: Normal Inspection, Normal Lips, Normal Voice, No Airway Compromise Head: Atraumatic, Normocephalic Neck: Normal Inspection, Full Range of Motion Respiratory/Chest: No Respiratory Distress, Lungs Clear, Normal Breath Sounds, No Accessory Muscle Use, Chest Non-Tender, Other (Left chest pain is reproduced with the patient pressing his hands together with outstretched arms in front of him, or by crossing his left arm across his chest. Pain is also reproduced with the patient turning his head fully to the left. Pain is not induced with the patient turning his head fully ) Cardiovascular: Normal Peripheral Pulses, Regular Rate, Rhythm, No Gallop, No JVD, No Murmur, No Rub Peripheral Pulses: 3+: Radial (L), Radial (R) GI/Abdominal: Normal Bowel Sounds, Soft, Non-Tender, No Organomegaly, No Distention, No Abnormal Bruit, No Mass Back Exam: Normal Inspection, Full Range of Motion, NT Extremities: Normal Inspection, Normal Range of Motion, Normal Capillary Refill Neurological: Alert, Oriented, Normal Cognition, No Motor/Sensory Deficits Psychiatric: Normal Affect Skin Exam: Warm, Dry, Intact, Normal Color, No Rash #1 Interpretation EKG Date: 03/22/21 Time: 00:12 Rhythm: Other (Sinus tachycardia) Rate (Beats/Min): 102 [place]: RAD-Right [place] Deviation P-Wave: Enlarged (LAE. 1st degree AVB.) QRS: Other (Late transition) ST-T: Elevated (J-point elevation V2V6, without T wave inversions) QT: Normal Comparison: Change From Previous EKG (ECG had normal axis on 03/13/2021) Course - Vital Signs Last Recorded V/S: Last Vital Signs Temp 36.1 C 03/22/21 00:12 Pulse 107 H 03/22/21 00:12 Resp 16 03/22/21 00:12 BP 151/102 H 03/22/21 00:12 Pulse Ox 95 03/22/21 00:12 - Re-Assessments/Exams Free Text/Narrative Re-Assessment/Exam: 03/22/21 00:40 As above, the patient developed sudden-onset sharp left chest pain dyspnea around 23:30, while watching television. The pain evolved to feel like a pressure. When he checked his BP, he found her to be elevated at 197/112. His symptoms did not improve with aspirin or nitroglycerin per EMS. Here in the ED, the patient continues to have left-sided discomfort. His initial BP is 151/102 with tachycardia 107. His ECG demonstrates J-point elevation in V2V6, but without T wave inversions. He has right axis deviation, while his axis was within normal range on 03/13/2021. His physical exam is remarkable for reproduction of his left chest pain and radiation down his left upper extremity with turning his head fully to the left. The pain is not reproducible with his turning his head fully to the right, tipping his chin to his chest, or extending his neck. His pain is also reproduced by pressing his hands together with outstretched arms in front of him, and by crossing his left upper extremity across his chest. This indicates a musculoskeletal etiology, likely due to left cervical radiculopathy. The patient tells me that he was seen at [facility] on 03/14/2021, and that he flunked a stress test at that time, therefore underwent a coronary angiogram, which demonstrated ventricular hypertrophy, but no coronary disease. He states that he was started on a cholesterol medicine and a different antihypertensive medication, along with some potassium chloride. 03/22/21 00:55 [facility] called at 00:48. Case discussed with Shaunna at [facility] at 00:49. She reported that the patient was admitted to their facility on 03/13/2021. He flunked a stress test on 03/14/2021. He underwent a transesophageal echocardiogram on 03/14/2021 or 03/15/2021, demonstrating a LVEF of 65 to 70%. Normal RV. Mild LVH. Good valvular function. No regional wall motion abnormalities. The patient then went for a coronary angiogram with the [facility] Dr. May on 03/15/2021, which demonstrated minimal coronary artery disease. He was started on atorvastatin 40 mg/day, losartan/hydrochlorothiazide, KCl 20 mEq daily, and metoprolol 25 mg, a half-tab po BID. 03/22/21 01:13 I discussed the information that I gathered from [facility] with the patient. As above, the patient is likely suffering from musculoskeletal chest pain due to left cervical radiculopathy. No further work-up is indicated tonight. I will discharge him home with the recommendation that he continue to take his current medications as prescribed. I am recommending that he take [id number]-[id number] ibuprofen as needed for discomfort, then follow-up with Dr. Polo to arrange for an MRI of his neck. Departure - Departure Time of Disposition: 01:16 Disposition: Home, Self-Care 01 Condition: Good Clinical Impression: Musculoskeletal chest pain, Left cervical radiculopathy - Discharge Information *PRESCRIPTION DRUG MONITORING PROGRAM REVIEWED*: Not Applicable *COPY OF PRESCRIPTION DRUG MONITORING REPORT IN PATIENT EUN: Not Applicable Instructions: Nonspecific Chest Pain, Adult, [id number], Cervical Radiculopathy, Czam-[id number] Referrals: Bjorn Polo MD [Physician] - Flex May DO [Ordering Only Provider] - Forms: ED Department Discharge Additional Instructions: You were seen in the emergency room after developing sharp sudden-onset left- sided chest pain and shortness of breath. Work-up in the ER included an ECG, which did not show any ischemic changes. Your pain was reproduced with pressing her hands together with outstretched arms in front of your chest, by crossing her left arm across her chest, and by turning her head fully to the left. This indicates that your pain is musculoskeletal in etiology, most likely triggered by left cervical radiculopathy. We recommend that you take dtuv-mct-[id number] ibuprofen, 3 tablets (600 mg) up to every 8 hours, with food, as needed for discomfort. We recommend that you follow-up with your PCP, Dr. Bjorn Polo, to discuss the option of getting an MRI of your neck. In the meantime, we recommend that you continue to take your current medications as prescribed. After a couple of weeks, we recommend that you check your blood pressure 2-3 times per week, at different times of the day, for 2 to 3 weeks, but only under restful conditions = you have been sitting for at least 5, and preferably 15 minutes, you are not in pain, you are not sick, or feeling anxious. The arm that you are checking your blood pressure and should be supported, with the blood pressure cuff at the height of your heart. Write the numbers down, and present them to Dr. Polo when you see him. He can then determine if your current blood pressure medications are adequate. If any other problems, please do not hesitate to return to the ER. Sepsis Event Note (ED) - Evaluation Sepsis Screening Result: No Definite Risk
== END 2021-03-22 01:30 | disposition home or self-care (01) ==
LOC: JD.ED 00:09
DX: R07.9 Chest pain, unspecified (principal); M54.12 Radiculopathy, cervical region; E78.00 Pure hypercholesterolemia, unspecified; I10 Essential (primary) hypertension; E66.9 Obesity, unspecified; Z68.36 Body mass index [BMI] 36.0-36.9, adult; Z88.6 Allergy status to analgesic agent; Z79.899 Other long term (current) drug therapy
CPT/HCPCS: 93005; 93010; 99283; 99285-25

== ENCOUNTER 2021-03-30 03:24 | Emergency (ER) | payer MEDICAID ==
--- NOTE | 2021-03-30 03:41 | EDM.PDOC ---
ED HPI GENERAL MEDICAL PROBLEM - General Chief Complaint: Cardiovascular Problem Stated Complaint: HIGH BLOOD PRESSURE AND HEAD HURTS Time Seen by Provider: 03/30/21 03:41 Source of Information: Reports: Patient History Limitations: Reports: No Limitations - History of Present Illness INITIAL COMMENTS - FREE TEXT/NARRATIVE: 45-year-old male presents to the ED for evaluation of a diffuse pressure in his head anterior temporal scalp and forehead which he appreciates when his blood pressure is elevated. Recently he has been experiencing problems with labile hypertension and medications have been changed recently to provide blood pressure control. Recent evaluation by cardiology in [place] with the aid of a transesophageal echocardiogram and an angiogram revealed no abnormalities on angiography and slight thickening of the septum and left ventricle secondary to poorly controlled blood pressure. Tonight at home his blood pressure was elevated at greater than 220/110. He was unable to fall asleep even with the aid of his CPAP machine. Because of his elevated blood pressure and headache he elected to come to the ED for further evaluation. Once he got here his blood pressure was found to be around 147/88. Headache it also started to dissipate once he came into the hospital. At home he was feeling nauseated with a lot of burping and belching suggesting he was swallowing air on the CPAP machine because he was not sleeping. Patient appears to have a good deal of anxiety component to his current illness. He apparently does have some lorazepam 1 mg tablets at home to be used on a as needed basis. Onset: Gradual, Other (He has been having problems with labile hypertension for the last several weeks.) Onset Date: 03/29/21 Duration: Week(s):, Intermittent, Waxing/Waning Location: Reports: Head, Other (Persistent headache when his blood pressure is elevated. Labile hypertension) Quality: Reports: Other (Labile hypertension) Severity: Moderate Improves with: Reports: None Worsens with: Reports: None Context: Denies: Activity, Exercise, Lifting, Sick Contact, Trauma, Other Associated Symptoms: Reports: Headaches, Nausea/Vomiting (Been belching and nausea). Denies: No Other Symptoms, Confusion, Chest Pain, Cough, cough w sputum, Diaphoresis, Fever/Chills, Loss of Appetite, Malaise, Weakness Treatments [employer]: Reports: Other (see below) (The medications as prescribed) Headache Pain Score (Numeric/FACES): 9 - Related Data Allergies Allergy/AdvReac Type Severity Reaction Status Date / Time morphine AdvReac Intermediate Bradycardia Verified 03/31/21 10:50 Home Meds: Home Meds Losartan/Hydrochlorothiazide [Hyzaar 50-12.5 Tablet] 12.5 mg PO DAILY 09/15/19 [History] amLODIPine [Norvasc] 5 mg PO DAILY #30 tab 03/13/21 [Rx] Potassium Chloride Crystals. 1 dose PO DAILY 03/22/21 [History] atorvaSTATin [Lipitor] 40 mg PO BEDTIME 03/22/21 [History] Past Medical History Cardiovascular History: Reports: High Cholesterol, Hypertension Other Cardiovascular History: "rodriguez of heart are thick" on transesophageal echocardiogram. Angiography done in March 2021 to to be completely normal. Respiratory History: Reports: Sleep Apnea (Use CPAP machine at bedtime.) Genitourinary History: Reports: BPH, Other (See Below) (Urinary frequency) Musculoskeletal History: Reports: Back Pain, Chronic Neurological History: Reports: Migraines, Other (See Below) Other Neuro History: 2020 had bad migrane that sent him to [facility], put on fioricet Endocrine/Metabolic History: Reports: Obesity/BMI 30+ - Past Surgical History HEENT Surgical History: Reports: Naso-Sinus Surgery, Oral Surgery (dental extractions) Cardiovascular Surgical History: Reports: Other (See Below) (Coronary angiogram 03/15/2021) GI Surgical History: Reports: Cholecystectomy (2011 or 2012), Colonoscopy (x 1), EGD (x 1) Male Surgical History: Reports: Vasectomy Neurological Surgical History: Reports: Lumbar Spine (microdiscectomy) Musculoskeletal Surgical History: Reports: Arthroscopic Knee (left) Social & Family History - Family History Family Medical History: No Pertinent Family History - Caffeine Use Caffeine Use: Reports: None - Living Situation & Occupation Living situation: Reports: , with Spouse, with Family (3 kids + [id number]) Occupation: Employed ([employer]) ED [facility] GENERAL - Review of Systems Review Of Systems: See Below Constitutional: Reports: Malaise, Fatigue, Decreased Appetite. Denies: Fever, Chills, Weight Loss HEENT: Reports: Glasses (For reading) Respiratory: Denies: Shortness of Breath, Wheezing, Pleuritic Chest Pain, Cough, Sputum, Hemoptysis Cardiovascular: Reports: Blood Pressure Problem. Denies: Chest Pain, Claudication, Dyspnea on Exertion, Edema, Lightheadedness, Orthopnea, Palpitations Endocrine: Reports: Fatigue GI/Abdominal: Reports: No Symptoms : Reports: Frequency, Other Musculoskeletal: Reports: Neck Pain (Trigger usually x1), Back Pain Skin: Reports: No Symptoms Neurological: Reports: No Symptoms Psychiatric: Reports: Anxiety (Bit of anxiety recently due to health related issues) ED EXAM, GENERAL - Physical Exam Exam: See Below Exam Limited By: No Limitations General Appearance: Alert, WD/WN, No Apparent Distress, Anxious, Other (Mildly anxious. Blood pressure came down with speaking with the patient. Temperature was 35.8. Heart rate 63 in sinus respiratory to 17 with O2 sats of 95% room air BP 148/92 and it did come down to) Eye Exam: Bilateral Eye: A-V Nicking (Minimal AV nicking appreciated), Normal Inspection (No blepharal pallor or scleral icterus.) Respiratory/Chest: No Respiratory Distress, Lungs Clear, Normal Breath Sounds, No Accessory Muscle Use, Prolonged Expiration Cardiovascular: Normal Peripheral Pulses, Regular Rate, Rhythm, No Edema, No Gallop, No Murmur, No Rub Peripheral Pulses: 2+: Carotid (L), Carotid (R), Posterior Tibial (L), Posterior Tibial (R), Dorsalis Pedis (L), Dorsalis Pedis (R) GI/Abdominal: Normal Bowel Sounds, Soft, Non-Tender, No Organomegaly, No Abnormal Bruit, No Mass, Pelvis Stable. No: Guarding, Rigid, Rebound, Tender Extremities: Normal Inspection, Normal Range of Motion, Non-Tender, No Pedal Edema Neurological: Alert, Oriented, CN II-XII Intact, Normal Cognition Psychiatric: Anxious Skin Exam: Warm, Dry, Intact, Normal Color, No Rash Course - Vital Signs Last Recorded V/S: Last Vital Signs Temp 35.8 C L 03/30/21 03:37 Pulse 62 03/30/21 04:14 Resp 17 03/30/21 03:37 BP 137/85 03/30/21 04:14 Pulse Ox 98 03/30/21 04:14 - Orders/Labs/Meds Meds: Medications Discontinued Medications Generic Name Dose Route Start Last Admin Trade Name Freq PRN Reason Stop Dose Admin Acetaminophen/Butalbital/Caffeine 1 tab 03/30/21 03:58 03/30/21 04:14 Acetaminophen/Butalbital/Caffeine 325-50-40 Mg Tab PO 03/30/21 03:59 1 tab ONETIME ONE Administration Amlodipine Besylate 5 mg 03/30/21 03:57 03/30/21 04:13 Amlodipine 5 Mg Tab PO 03/30/21 03:58 5 mg ONETIME ONE Administration - Radiology Interpretation Free Text/Narrative:: 45-year-old male who is experiencing labile hypertension with recent changes to medications for blood pressure control. Recent evaluation by cardiology identified thickening of the septum and left ventricle due to poorly controlled blood pressure. Blood pressure medications have therefore been altered as of recent. He was on metoprolol 12.5 mg twice daily and he was advised to finish this up and then start amlodipine 5 mg once daily to provide better 24-hour control of his blood pressure and prevent lability. His blood pressure was markedly elevated tonight at home which created increased anxiety and inability to sleep even with his CPAP machine and place. He therefore came down to the ED for further evaluation. By the time he got here his blood pressure was 147/92 and it came down even further to 142/84. I have advised him to use amlodipine 5 mg at bedtime as blood pressure spikes during the night and has a better chance of bringing him 24 better control of his blood pressure. He will use the losartan hydrochlorothiazide in the morning so that he will not have to get up in the night to void as much from the hydrochlorothiazide. Patient reassured at length. Of note there is a good deal of anxiety component to his current illness. Current headache could be treated with Tylenol at home although he strongly believes it was due to his blood pressure and did not try alternative medication. Departure - Departure Time of Disposition: 03:59 Disposition: Home, Self-Care 01 Reason for Transfer *Q: Other Condition: Fair Clinical Impression: Labile hypertension, Headache Instructions: General Headache Without Cause, [id number], Hypertension, Adult Referrals: Bjorn Polo MD [Primary Care Provider] - Forms: ED Department Discharge Additional Instructions: Evaluation the emergency room tonight in regards to diffuse pressure felt anterior to both ears and temporal aspects of the scalp and forehead which you often recognize to be related to an elevation of your blood pressure pressure check at home was significantly elevated at greater than 220/over 110. To sleep or get comfortable even with CPAP machine in place. Therefore you decided to travel to the emergency department for further evaluation of your blood pressure. Blood pressure medications have been changed around a little bit recently after cardiology consultation and evaluation over the last few weeks. It is my suggestion that you start amlodipine 5 mg at bedtime which tends to last a full 24 hours and prevents spikes of blood pressure during the night. Use your losartan hydrochlorothiazide tablet in the morning for blood pressure control. You were given an amlodipine 5 mg tablet in the emergency room tonight to help lower your blood pressure further although over time it is coming down to near normal values at 146/86 and before discharge home down to 135/84. I also sent you home with the Fioricet tablet that can be taken if needed for headache relief once you get home as you have to drive back to [place]. Stop the metoprolol medication that you are currently taking and switch to the amlodipine once daily at bedtime as we discussed. Follow-up with Dr. Mccormack as planned
[2021-03-30] MEDS ORDERED: amLODIPine 5 MG Tab PO ONE (03:57)
[2021-03-30] MEDS ORDERED: Acetaminophen/Butalbital/Caffeine 325-50-40 MG Tab PO ONE (03:58)
== END 2021-03-30 04:14 | disposition home or self-care (01) ==
LOC: JD.ED 03:24
DX: I10 Essential (primary) hypertension (principal); E78.00 Pure hypercholesterolemia, unspecified; E66.9 Obesity, unspecified; Z68.36 Body mass index [BMI] 36.0-36.9, adult; Z88.5 Allergy status to narcotic agent; Z79.899 Other long term (current) drug therapy
CPT/HCPCS: 99283; A9270; 99284

== ENCOUNTER 2021-05-13 09:40 | Emergency (ER) | payer MEDICAID ==
--- NOTE | 2021-05-13 10:25 | EDM.PDOC ---
ED HPI GENERAL MEDICAL PROBLEM - General Chief Complaint: Genitourinary Problem Stated Complaint: RT TESTICLE PAIN Time Seen by Provider: 05/13/21 09:54 Source of Information: Reports: Patient History Limitations: Reports: No Limitations - History of Present Illness INITIAL COMMENTS - FREE TEXT/NARRATIVE: The patient presents with right testicle pain. This has been going on for about a month. He denies any trauma. As far as he can tell there is no swelling. He does notice some firmness above the right testicle. He has no dysuria, drainage or rash. He has no other symptoms such as fever, chills, cough, chest pain, shortness of breath, abdominal pain, nausea or vomiting. Onset: Gradual Duration: Week(s): (4) Location: Reports: Other (right testicle) Quality: Reports: Ache Severity: Moderate Improves with: Reports: None Worsens with: Reports: None Associated Symptoms: Reports: No Other Symptoms Right Scrotum Pain Score (Numeric/FACES): 10 - Related Data Allergies Allergy/AdvReac Type Severity Reaction Status Date / Time morphine AdvReac Intermediate Bradycardia Verified 05/13/21 09:50 Home Meds: Home Meds Losartan/Hydrochlorothiazide [Hyzaar 50-12.5 Tablet] 12.5 - 50 mg PO DAILY 09/15/19 [History] amLODIPine [Norvasc] 5 mg PO DAILY #30 tab 03/13/21 [Rx] Potassium Chloride Crystals. 1 dose PO DAILY 03/22/21 [History] atorvaSTATin [Lipitor] 40 mg PO BEDTIME 03/22/21 [History] Doxycycline [Vibramycin] 100 mg PO BID #20 cap 05/13/21 [Rx] Past Medical History Cardiovascular History: Reports: High Cholesterol, Hypertension Other Cardiovascular History: "rodriguez of heart are thick" on transesophageal echocardiogram. Angiography done in March 2021 to to be completely normal. Respiratory History: Reports: Sleep Apnea Genitourinary History: Reports: BPH, Other (See Below) Musculoskeletal History: Reports: Back Pain, Chronic Neurological History: Reports: Migraines, Other (See Below) Other Neuro History: 2020 had bad migrane that sent him to [facility], put on fioricet Endocrine/Metabolic History: Reports: Obesity/BMI 30+ - Infectious Disease History Infectious Disease History: Reports: Chicken Pox - Past Surgical History HEENT Surgical History: Reports: Naso-Sinus Surgery, Oral Surgery Cardiovascular Surgical History: Reports: Other (See Below) GI Surgical History: Reports: Cholecystectomy, Colonoscopy, EGD Male Surgical History: Reports: Vasectomy Neurological Surgical History: Reports: Lumbar Spine Musculoskeletal Surgical History: Reports: Arthroscopic Knee Other Musculoskeletal Surgeries/Procedures:: knee surgery & back surgery Social & Family History - Family History Family Medical History: No Pertinent Family History - Tobacco Use Tobacco Use Status *Q: Never Tobacco User - Caffeine Use Caffeine Use: Reports: None - Recreational Drug Use Recreational Drug Use: No - Living Situation & Occupation Living situation: Reports: , with Spouse, with Family (3 kids + [id number]) Occupation: Employed ([employer]) ED ROS GENERAL - Review of Systems Review Of Systems: See Below Constitutional: Reports: No Symptoms HEENT: Reports: No Symptoms Respiratory: Reports: No Symptoms Cardiovascular: Reports: No Symptoms Endocrine: Reports: No Symptoms GI/Abdominal: Reports: No Symptoms : Reports: Other (right testicle pain) ED EXAM, RENAL/ - Physical Exam Exam: See Below Exam Limited By: No Limitations General Appearance: Alert, No Apparent Distress Ears: Normal External Exam Nose: Normal Inspection Head: Atraumatic, Normocephalic Neck: Normal Inspection Respiratory/Chest: No Respiratory Distress, Lungs Clear, Normal Breath Sounds Cardiovascular: Regular Rate, Rhythm, No Edema, No Murmur GI/Abdominal: Soft, Non-Tender, No Organomegaly, No Mass (Male) Exam: Scrotum Tenderness (R) Extremities: Normal Inspection Course - Vital Signs Last Recorded V/S: Last Vital Signs Temp 96.5 F L 05/13/21 09:50 Pulse 68 05/13/21 09:50 Resp 20 05/13/21 09:50 BP 132/79 05/13/21 09:50 Pulse Ox 96 05/13/21 09:50 - Orders/Labs/Meds Labs: Laboratory Tests 05/13/21 Range/Units 10:15 Urine Color Yellow (Yellow) Urine Appearance Clear (Clear) Urine pH 7.0 (5.0-8.0) Ur Specific [place] 1.025 (1.005-1.030) Urine Protein Trace H (Negative) Urine Glucose (UA) Negative (Negative) Urine Ketones Negative (Negative) Urine Occult Blood Negative (Negative) Urine Nitrite Negative (Negative) Urine Bilirubin Negative (Negative) Urine Urobilinogen 1.0 (0.2-1.0) Ur Leukocyte Esterase Negative (Negative) Urine RBC 0-5 (0-5) /hpf Urine WBC 0-5 (0-5) /hpf Ur Epithelial Cells 0-5 (0-5) /hpf Urine Bacteria Rare (FEW) /hpf Urine Mucus Moderate H (FEW) /hpf - Re-Assessments/Exams Free Text/Narrative Re-Assessment/Exam: 05/13/21 10:25 I have ordered a UA and an US of his scrotum. 05/13/21 12:17 His UA shows no UTI. I did an US and it shows slight asymmetric vascularity within the right testicle as compared to the left side. Difficult to exclude minimal orchitis within the right testicle. Please correlate with the patient's symptoms. Small epididymal cyst within the right epididymis. Minimal bilateral hydroceles. Possible calcifications within the periphery of the left testicle. Recommend follow-up left testicular US in 6 months to confirm stability. 05/13/21 12:23 I will give him a shot of rocephin here and a prescription for doxycycline. Departure - Departure Time of Disposition: 12:25 Disposition: Home, Self-Care 01 Condition: Good Clinical Impression: Orchitis - Discharge Information *PRESCRIPTION DRUG MONITORING PROGRAM REVIEWED*: Not Applicable *COPY OF PRESCRIPTION DRUG MONITORING REPORT IN PATIENT EUN: Not Applicable Prescriptions: Doxycycline [Vibramycin] 100 mg PO BID #20 cap Referrals: Bjorn Polo MD [Primary Care Provider] - 1 Week Forms: ED Department Discharge Additional Instructions: Drink plenty of fluids. Take tylenol or motrin for pain. Take the doxycycline 2 times per day for 10 days. Follow up with Dr Mccormack within a week. Some calcifications were found on the ultrasound. They recommend an ultrasound in 6 months to make sure they are stable. Please return if you are worse. Sepsis Event Note (ED) - Evaluation Sepsis Screening Result: No Definite Risk - Focused Exam Vital Signs: Vital Signs Temp Pulse Resp BP Pulse Ox 05/13/21 09:50 96.5 F L 68 20 132/79 96
--- NOTE | 2021-05-13 11:59 | US ---
Testicular ultrasound: Multiple real-time images of both testicles were obtained. Comparison: No prior testicular imaging is available. Findings: Right testicle shows no focal abnormality. Left testicle shows 2 small adjacent calcifications peripherally which are most likely benign although follow-up will be recommended. Right testicle shows slight increased vascularity as compared to the left side. Epididymal cyst measuring 5 mm noted on the right side. Minimal bilateral hydroceles are seen. Measurements: Right testicle: 5.0 x 2.5 x 4.6 cm Left testicle: 4.9 x 2.6 x 3.2 cm Impression: 1. Slight asymmetric vascularity within the right testicle as compared to the left side. Difficult to exclude minimal orchitis within the right testicle. Please correlate with the patient's symptoms. 2. Small epididymal cyst within the right epididymis. 3. Minimal bilateral hydroceles. 4. Possible calcifications within the periphery of the left testicle. Recommend follow-up left testicular ultrasound in 6 months to confirm stability. This follow-up study would occur in November, Diagnostic code #3
[2021-05-13] MEDS ORDERED: cefTRIAXone 250 MG, Lidocaine 1% 0.9 ML IM ONE ×2 (12:22)
== END 2021-05-13 12:40 | disposition home or self-care (01) ==
LOC: JD.ED 09:40
DX: N45.2 Orchitis (principal); E78.00 Pure hypercholesterolemia, unspecified; I10 Essential (primary) hypertension; E66.9 Obesity, unspecified; Z68.36 Body mass index [BMI] 36.0-36.9, adult; Z88.5 Allergy status to narcotic agent; Z79.899 Other long term (current) drug therapy
CPT/HCPCS: 76870; 81001; 93975; 96372; 99284; J0696

== ENCOUNTER 2021-10-07 22:30 | Emergency (ER) | payer MEDICAID ==
[2021-10-07] MEDS ORDERED: Dexamethasone 4 MG/ML SDV IVPUSH ONE (23:13)
== END 2021-10-08 02:07 | disposition home or self-care (01) ==
LOC: SUPCPDRO 22:30 → JD.ED 22:30
DX: U07.1 COVID-19 (principal); J12.82 Pneumonia due to coronavirus disease 2019; I10 Essential (primary) hypertension; E78.00 Pure hypercholesterolemia, unspecified; E66.9 Obesity, unspecified; Z68.35 Body mass index [BMI] 35.0-35.9, adult; Z88.5 Allergy status to narcotic agent; Z79.899 Other long term (current) drug therapy
CPT/HCPCS: 36415; 71045; 80053; 83880; 84484; 85025; 85379; 85610; 86140; 96374; 99285; J1100

== ENCOUNTER 2021-10-08 14:25 | Inpatient (IN) | payer MEDICAID ==
[2021-10-08] MEDS ORDERED: Albuterol/Ipratropium 3.0-0.5 MG/3 ML Neb Soln NEB ONE (14:40)
[2021-10-08] MEDS ORDERED: Dexamethasone 4 MG/ML SDV IVPUSH ONE (14:59)
[2021-10-08] MEDS ORDERED: Sodium Chloride 0.9% 1,000 ML IV ONE (15:20)
[2021-10-08] MEDS ORDERED: Acetaminophen 325 MG Tab PO PRN (19:23)
[2021-10-08] MEDS ORDERED: Albuterol 0.083% 2.5 MG/3 ML Neb Soln NEB PRN (19:23)
[2021-10-08] MEDS ORDERED: Ibuprofen 600 MG Tab PO PRN (19:23)
[2021-10-08] MEDS ORDERED: Ondansetron 4 MG/2 ML SDV IV PRN (19:23)
[2021-10-08] MEDS ORDERED: REMDESIVIR 200 MG in Sodium Chloride 0.9% 250 ML IV ONE ×2 (19:23→21:00)
[2021-10-08] MEDS: atorvaSTATin 40 MG Tab PO SCH (21:19)
[2021-10-08] MEDS: Metoprolol Succinate 25 MG Tab.ER PO SCH (21:19)
[2021-10-09] MEDS: guaiFENesin/Dextromethorphan 100-10 MG/5 ML Soln 5 ML Cup PO PRN ×2 (00:21→08:04)
[2021-10-09] MEDS: Enoxaparin 40 MG/0.4 ML Syringe SUBCUT SCH (08:00)
[2021-10-09] MEDS ORDERED: Albuterol 6.7 GM Inhaler INH PRN (08:44)
[2021-10-09] MEDS: Albuterol/Ipratropium 3.0-0.5 MG/3 ML Neb Soln NEB PRN (08:52)
[2021-10-09] MEDS ORDERED: Dexamethasone 4 MG Tab PO SCH (09:00)
[2021-10-09] MEDS ORDERED: Losartan 50 MG Tab PO SCH (09:00)
[2021-10-09] MEDS: Zinc Sulfate 220 MG Cap PO SCH (09:22)
[2021-10-09 11:59] LABS: HEMOGLOBIN A1C 6.2 %
[2021-10-09] MEDS: Cholecalciferol (Vitamin D3) 5,000 UNIT Tab PO SCH (12:11)
[2021-10-09] MEDS ORDERED: Lactated Ringers 1,000 ML IV ONE (12:30)
[2021-10-09] MEDS ORDERED: REMDESIVIR 100 MG in Sodium Chloride 0.9% 100 ML IV SCH (19:30)
[2021-10-09] MEDS: Metoprolol Succinate 25 MG Tab.ER PO SCH (20:23)
[2021-10-09] MEDS: atorvaSTATin 40 MG Tab PO SCH (20:24)
[2021-10-10] MEDS: Albuterol/Ipratropium 3.0-0.5 MG/3 ML Neb Soln NEB PRN ×2 (08:14→13:24)
[2021-10-10] MEDS: Cholecalciferol (Vitamin D3) 5,000 UNIT Tab PO SCH (08:40)
[2021-10-10] MEDS: Dexamethasone 6 MG TABLET PO SCH ×2 (08:40→21:02)
[2021-10-10] MEDS: Enoxaparin 40 MG/0.4 ML Syringe SUBCUT SCH (08:40)
[2021-10-10] MEDS: Zinc Sulfate 220 MG Cap PO SCH (08:40)
[2021-10-10] MEDS ORDERED: Losartan 25 MG Tab PO SCH (09:00)
[2021-10-10] MEDS: REMDESIVIR 100 MG in Sodium Chloride 0.9% 250 ML IV SCH (18:31)
[2021-10-10] MEDS ORDERED: REMDESIVIR 100 MG in Sodium Chloride 0.9% 250 ML IV SCH (19:00)
[2021-10-10] MEDS: atorvaSTATin 40 MG Tab PO SCH (21:02)
[2021-10-10] MEDS: Metoprolol Succinate 25 MG Tab.ER PO SCH (21:03)
[2021-10-11] MEDS: Cholecalciferol (Vitamin D3) 5,000 UNIT Tab PO SCH (08:40)
[2021-10-11] MEDS: Dexamethasone 6 MG TABLET PO SCH ×2 (08:40→20:34)
[2021-10-11] MEDS: Enoxaparin 40 MG/0.4 ML Syringe SUBCUT SCH (08:40)
[2021-10-11] MEDS: Zinc Sulfate 220 MG Cap PO SCH (08:40)
[2021-10-11] MEDS: REMDESIVIR 100 MG in Sodium Chloride 0.9% 250 ML IV SCH (18:24)
[2021-10-11] MEDS: atorvaSTATin 40 MG Tab PO SCH (20:34)
[2021-10-11] MEDS: Metoprolol Succinate 25 MG Tab.ER PO SCH (20:34)
[2021-10-12] MEDS: Dexamethasone 6 MG TABLET PO SCH ×2 (08:01→20:15)
[2021-10-12] MEDS: Cholecalciferol (Vitamin D3) 5,000 UNIT Tab PO SCH (08:01)
[2021-10-12] MEDS: Zinc Sulfate 220 MG Cap PO SCH (08:01)
[2021-10-12] MEDS: Enoxaparin 40 MG/0.4 ML Syringe SUBCUT SCH (08:02)
[2021-10-12] MEDS ORDERED: Insulin Lispro 100 Unit/ML 3 ML KwikPen SUBCUT SCH (11:30)
[2021-10-12] MEDS ORDERED: Benzonatate 100 MG Cap PO PRN (12:51)
[2021-10-12] MEDS: Insulin Lispro 100 Unit/ML 3 ML KwikPen SUBCUT SCH (17:26)
[2021-10-12] MEDS: REMDESIVIR 100 MG in Sodium Chloride 0.9% 250 ML IV SCH (18:54)
[2021-10-12] MEDS: atorvaSTATin 40 MG Tab PO SCH (20:15)
[2021-10-12] MEDS: Metoprolol Succinate 25 MG Tab.ER PO SCH (20:16)
[2021-10-13] MEDS: Insulin Lispro 100 Unit/ML 3 ML KwikPen SUBCUT SCH ×2 (06:50→17:28)
[2021-10-13] MEDS: Cholecalciferol (Vitamin D3) 5,000 UNIT Tab PO SCH (08:28)
[2021-10-13] MEDS: Dexamethasone 6 MG TABLET PO SCH ×2 (08:28→21:32)
[2021-10-13] MEDS: Zinc Sulfate 220 MG Cap PO SCH (08:28)
[2021-10-13] MEDS: Enoxaparin 40 MG/0.4 ML Syringe SUBCUT SCH (08:28)
[2021-10-13] MEDS: Metoprolol Succinate 25 MG Tab.ER PO SCH (21:32)
[2021-10-13] MEDS: atorvaSTATin 40 MG Tab PO SCH (21:33)
[2021-10-14] MEDS: Enoxaparin 40 MG/0.4 ML Syringe SUBCUT SCH (08:29)
[2021-10-14] MEDS: Zinc Sulfate 220 MG Cap PO SCH (08:29)
[2021-10-14] MEDS: Dexamethasone 6 MG TABLET PO SCH ×2 (08:29→20:00)
[2021-10-14] MEDS: Insulin Lispro 100 Unit/ML 3 ML KwikPen SUBCUT SCH ×2 (08:29→16:46)
[2021-10-14] MEDS: Cholecalciferol (Vitamin D3) 5,000 UNIT Tab PO SCH (08:29)
[2021-10-14] MEDS: Metoprolol Succinate 25 MG Tab.ER PO SCH (20:00)
[2021-10-14] MEDS: atorvaSTATin 40 MG Tab PO SCH (20:01)
[2021-10-15] MEDS: Cholecalciferol (Vitamin D3) 5,000 UNIT Tab PO SCH (07:59)
[2021-10-15] MEDS: Insulin Lispro 100 Unit/ML 3 ML KwikPen SUBCUT SCH (07:59)
[2021-10-15] MEDS: Zinc Sulfate 220 MG Cap PO SCH (07:59)
[2021-10-15] MEDS: Dexamethasone 6 MG TABLET PO SCH (07:59)
[2021-10-15] MEDS: Enoxaparin 40 MG/0.4 ML Syringe SUBCUT SCH (08:00)
== END 2021-10-15 13:00 | disposition home or self-care (01) | DRG 177 ==
LOC: JD.ED 14:25 → JD.MS 18:22
PROVIDERS: ADMIT Family Medicine; ATTEND Family Medicine
PROC: XW033E5 Introduction of Remdesivir Anti-infective into Peripheral Vein, Percutaneous Approach, New Technology Group 5 (ICD-10-PCS; principal; 2021-10-08)
PROC: 3E0333Z Introduction of Anti-inflammatory into Peripheral Vein, Percutaneous Approach (ICD-10-PCS; 2021-10-08)
PROC: 8E0ZXY6 Isolation (ICD-10-PCS; 2021-10-08)
PROC: 3E0DX3Z Introduction of Anti-inflammatory into Mouth and Pharynx, External Approach (ICD-10-PCS; 2021-10-09)
DX: U07.1 COVID-19 (principal); J12.82 Pneumonia due to coronavirus disease 2019; E87.2 Acidosis; E78.5 Hyperlipidemia, unspecified; I10 Essential (primary) hypertension; G47.30 Sleep apnea, unspecified; N40.0 Benign prostatic hyperplasia without lower urinary tract symptoms; G89.29 Other chronic pain; M54.9 Dorsalgia, unspecified; G43.909 Migraine, unspecified, not intractable, without status migrainosus; E66.9 Obesity, unspecified; R73.03 Prediabetes; E88.09 Other disorders of plasma-protein metabolism, not elsewhere classified; F41.9 Anxiety disorder, unspecified; E78.00 Pure hypercholesterolemia, unspecified; E55.9 Vitamin D deficiency, unspecified; R73.9 Hyperglycemia, unspecified; Z88.5 Allergy status to narcotic agent; Z98.890 Other specified postprocedural states; Z79.899 Other long term (current) drug therapy; Z90.49 Acquired absence of other specified parts of digestive tract; Z98.52 Vasectomy status; Z68.34 Body mass index [BMI] 34.0-34.9, adult; Z86.16 Personal history of COVID-19
CPT/HCPCS: 36415; 71045; 71045-26; 80053; 82306; 82947; 83036; 83605; 83735; 84100; 84145; 84484; 85025; 85379; 85610; 85730; 86140; 93005; 93010; 94640; 94667; 94668; 94760; 94762; 96374; 99285; 99285-25; A9270-GY; J1100; J1650; J1815; J7030; J7050; J7120; J7620-GY; J8540

== ENCOUNTER 2021-10-19 17:41 | Emergency (ER) | payer MEDICAID ==
[2021-10-19] MEDS ORDERED: Albuterol/Ipratropium 3.0-0.5 MG/3 ML Neb Soln NEB ONE (18:15)
[2021-10-19] MEDS ORDERED: Aspirin 81 MG Tab.Chew PO ONE (18:28)
[2021-10-19] MEDS: Sodium Chloride 0.9% 10 ML Syringe FLUSH PRN ×2 (18:28→19:00)
[2021-10-19] MEDS ORDERED: Iopamidol 755 Mg/ML 100 ML Bottle IVPUSH ONE (18:59)
[2021-10-19] MEDS ORDERED: Sodium Chloride 0.9% 100 ML IV SCH (19:00)
== END 2021-10-19 20:12 | disposition home or self-care (01) ==
LOC: JD.ED 17:41
DX: U07.1 COVID-19 (principal); J12.82 Pneumonia due to coronavirus disease 2019; R09.02 Hypoxemia; E78.00 Pure hypercholesterolemia, unspecified; I10 Essential (primary) hypertension; N40.0 Benign prostatic hyperplasia without lower urinary tract symptoms; E66.9 Obesity, unspecified; Z68.36 Body mass index [BMI] 36.0-36.9, adult; Z86.16 Personal history of COVID-19; Z88.5 Allergy status to narcotic agent; Z79.82 Long term (current) use of aspirin; Z79.899 Other long term (current) drug therapy
CPT/HCPCS: 36415; 71275; 80053; 84484; 85025; 85379; 85610; 85730; 86140; 93005; 94640; 99285; A9270; Q9967; J7620-GY

== ENCOUNTER 2021-11-09 11:07 | Emergency (ER) | payer MEDICAID | END 2021-11-09 14:00 | disposition home or self-care (01) | LOC: JD.ED 11:07 | DX: M54.42 Lumbago with sciatica, left side (principal); E78.00 Pure hypercholesterolemia, unspecified; I10 Essential (primary) hypertension; Z88.5 Allergy status to narcotic agent; Z79.899 Other long term (current) drug therapy; Z79.82 Long term (current) use of aspirin | CPT/HCPCS: 36415; 74176; 74176-26; 80053; 81003; 85025; 93971-26-LT; 93971-LT; 99284-25 ==

== ENCOUNTER 2022-03-07 06:53 | Emergency (ER) | payer MEDICAID ==
[2022-03-07 08:49] LABS: ESTIMATED GFR 105 mL/min (>60)
== END 2022-03-07 09:15 | disposition home or self-care (01) ==
LOC: JD.ED 06:53
DX: K62.5 Hemorrhage of anus and rectum (principal); K64.9 Unspecified hemorrhoids; K59.00 Constipation, unspecified; I10 Essential (primary) hypertension; E66.9 Obesity, unspecified; Z79.899 Other long term (current) drug therapy; Z88.5 Allergy status to narcotic agent
CPT/HCPCS: 36415; 80053; 83690; 85025; 86140; 99283

== ENCOUNTER 2022-04-09 09:01 | Emergency (ER) | payer MEDICAID | END 2022-04-09 11:30 | disposition left against medical advice (07) | LOC: JD.ED 09:01 | DX: Z53.21 Procedure and treatment not carried out due to patient leaving prior to being seen by health care provider (principal) ==

== ENCOUNTER 2022-12-22 07:13 | Emergency (ER) | payer MEDICAID ==
[2022-12-22] MEDS ORDERED: Sodium Chloride 0.9% 10 ML Syringe FLUSH PRN ×2 (08:07→08:11)
[2022-12-22] MEDS ORDERED: Iopamidol 612 MG/ML 100 ML Bottle IVPUSH ONE (08:11)
[2022-12-22] MEDS ORDERED: Dexamethasone 10 MG/ML SDV IVPUSH ONE (09:51)
== END 2022-12-22 10:25 | disposition home or self-care (01) ==
LOC: JD.ED 07:13
DX: J02.9 Acute pharyngitis, unspecified (principal); I10 Essential (primary) hypertension; E78.00 Pure hypercholesterolemia, unspecified; E66.9 Obesity, unspecified; Z68.35 Body mass index [BMI] 35.0-35.9, adult; Z86.16 Personal history of COVID-19; Z88.5 Allergy status to narcotic agent; Z79.899 Other long term (current) drug therapy; Z79.82 Long term (current) use of aspirin
CPT/HCPCS: 36415; 70491; 80053; 85025; 85379; 85610; 87651; 96374; 99283; J1100; J3490; Q9967; 99284

== ENCOUNTER 2023-01-02 08:15 | Emergency (ER) | payer MEDICAID ==
[2023-01-02] MEDS ORDERED: Acetaminophen/HYDROcodone 325-5 MG Tab PO ONE (11:18)
== END 2023-01-02 13:52 | disposition home or self-care (01) ==
LOC: JD.ED 08:15
DX: M54.9 Dorsalgia, unspecified (principal); M62.830 Muscle spasm of back; E78.00 Pure hypercholesterolemia, unspecified; I10 Essential (primary) hypertension; E66.9 Obesity, unspecified; Z68.36 Body mass index [BMI] 36.0-36.9, adult; Z88.5 Allergy status to narcotic agent; Z79.899 Other long term (current) drug therapy; Z86.16 Personal history of COVID-19
CPT/HCPCS: 36415; 74019; 74176; 80053; 81001; 83690; 85025; 99284; A9270; 99283

== ENCOUNTER 2023-10-06 09:23 | Emergency (ER) | payer BC, MEDICAID ==
[2023-10-06] MEDS ORDERED: Ondansetron 4 MG/2 ML SDV IVPUSH ONE (10:44)
[2023-10-06] MEDS ORDERED: Sodium Chloride 0.9% 500 ML IV ONE (10:44)
[2023-10-06] MEDS ORDERED: Iopamidol 612 MG/ML 30 ML SDV IVPUSH ONE (10:46)
[2023-10-06] MEDS ORDERED: Sodium Chloride 0.9% 10 ML Syringe FLUSH ONE (10:46)
[2023-10-06] MEDS ORDERED: Iopamidol 612 MG/ML 100 ML Bottle IVPUSH ONE (10:46)
[2023-10-06 10:49] LABS: BASOPHILS PERCENT AUTO 0.7 % (0.0-1.0); EOSINOPHILS ABSOLUTE AUTO 0.3 K/mm3 (0.0-0.4); EOSINOPHILS PERCENT AUTO 4.5 % (0.0-6.0); HEMATOCRIT 48.5 % (42.0-52.0); HEMOGLOBIN 16.6 gm/dl (14.0-18.0); IMMATURE GRAN ABSOLUTE AUTO 0.03 K/mm3 (0.00-0.05); IMMATURE GRAN PERCENT AUTO 0.5 % (0.0-0.4); LYMPHOCYTES ABSOLUTE AUTO 1.7 K/mm3 (1.0-4.8); MEAN CORPUSCULAR HEMOGLOBIN 30.1 pg (28.0-32.0); MEAN CORPUSCULAR HGB CONC 34.2 g/dl (32.0-36.0); MEAN CORPUSCULAR VOLUME 87.9 fl (83.0-99.0); MEAN PLATELET VOLUME 10.1 fl (9.4-12.4); MONOCYTES ABSOLUTE AUTO 0.7 K/mm3 (0.0-0.8); MONOCYTES PERCENT AUTO 12.5 % (0.0-8.0); NEUTROPHILS ABSOLUTE AUTO 2.8 K/mm3 (1.8-7.7); NEUTROPHILS PERCENT AUTO 50.8 % (41.0-71.0); PLATELET COUNT,PLT 215 K/mm3 (150-400); RED BLOOD CELL COUNT 5.52 M/mm3 (4.52-5.90); WHITE BLOOD CELL COUNT,WBC 5.58 K/mm3 (3.9-11.3)
[2023-10-06] MEDS ORDERED: Ketorolac 30 MG/ML SDV IM ONE (11:01)
[2023-10-06 11:02] LABS: ALANINE AMINOTRANSFERASE,ALT 40 U/L (16-63); ALBUMIN 3.7 g/dl (3.4-5.0); ALKALINE PHOSPHATASE 108 U/L (46-116); ANION GAP 10.5 (5-15); ASPARTATE AMNIOTRANSFERASE,AST 27 U/L (15-37); BLOOD UREA NITROGEN,BUN 18 mg/dL (7-18); C-REACTIVE PROTEIN <0.2 mg/dL (<1.0); CALCIUM 9.5 mg/dL (8.5-10.1); CARBON DIOXIDE,CO2 30 mEq/L (21-32); CHLORIDE,CL 104 mEq/L (98-107); CREATININE 0.9 mg/dL (0.7-1.3); ESTIMATED GFR 104 mL/min (>60); GLUCOSE RANDOM 104 mg/dL (70-99); LIPASE 38 U/L (16-77); MAGNESIUM 2.1 mg/dL (1.8-2.4); POTASSIUM,K 3.5 mEq/L (3.5-5.1); PROTEIN TOTAL,TP 7.3 g/dl (6.4-8.2); SODIUM,NA 141 mEq/L (136-145)
[2023-10-06 11:19] LABS: APPEARANCE,URINE CLEAR (Clear); BILIRUBIN,URINE NEGATIVE (Negative); COLOR,URINE YELLOW (Yellow); GLUCOSE,URINE NEGATIVE (Negative); KETONES,URINE NEGATIVE (Negative); LEUKOCYTE ESTERASE,URINE NEGATIVE (Negative); NITRITE,URINE NEGATIVE (Negative); OCCULT BLOOD,URINE NEGATIVE (Negative); PH,URINE 7.5 (5.0-8.0); PROTEIN,URINE NEGATIVE (Negative); UROBILINOGEN,URINE 0.2 (0.2-1.0)
[2023-10-06] MEDS ORDERED: Ketorolac 30 MG/ML SDV IVPUSH ONE (11:53)
[2023-10-06] MEDS ORDERED: Sodium Chloride 0.9% 1,000 ML IV ONE (11:58)
== END 2023-10-06 13:20 | disposition home or self-care (01) ==
LOC: JD.ED 09:23
DX: R10.31 Right lower quadrant pain (principal); I10 Essential (primary) hypertension; E78.00 Pure hypercholesterolemia, unspecified; E66.9 Obesity, unspecified; Z88.5 Allergy status to narcotic agent; Z79.899 Other long term (current) drug therapy
CPT/HCPCS: 36415; 74177; 80053; 81003; 83690; 83735; 85025; 86140; 96361; 96374; 96375; 99284; J1885; J2405; J3490; J7030; Q9967

== ENCOUNTER 2025-06-21 07:18 | Emergency (ER) | payer BC ==
[2025-06-21] MEDS ORDERED: Sodium Chloride 0.9% 10 ML Syringe FLUSH PRN (07:51)
[2025-06-21] MEDS: Sodium Chloride 0.9% 10 ML Syringe FLUSH PRN (08:18)
[2025-06-21] MEDS: Iopamidol 612 MG/ML 100 ML Bottle IVPUSH ONE (08:18)
[2025-06-21] MEDS: Iopamidol 612 MG/ML 30 ML SDV IVPUSH ONE (08:21)
[2025-06-21 08:33] LABS: BASOPHILS ABSOLUTE AUTO 0.0 K/mm3 (0.0-0.2); BASOPHILS PERCENT AUTO 0.4 % (0.0-1.0); EOSINOPHILS ABSOLUTE AUTO 0.2 K/mm3 (0.0-0.4); EOSINOPHILS PERCENT AUTO 2.5 % (0.0-6.0); IMMATURE GRAN ABSOLUTE AUTO 0.02 K/mm3 (0.00-0.05); IMMATURE GRAN PERCENT AUTO 0.2 % (0.0-0.4); LYMPHOCYTES ABSOLUTE AUTO 1.9 K/mm3 (1.0-4.8); LYMPHOCYTES PERCENT AUTO 22.6 % (24.0-44.0); MEAN PLATELET VOLUME 10.1 fl (9.4-12.4); MONOCYTES ABSOLUTE AUTO 1.1 K/mm3 (0.0-0.8); MONOCYTES PERCENT AUTO 12.5 % (0.0-8.0); NEUTROPHILS ABSOLUTE AUTO 5.2 K/mm3 (1.8-7.7); NEUTROPHILS PERCENT AUTO 61.8 % (41.0-71.0); NRBC ABSOLUTE 0.00 (0.00-0.02); NRBC PERCENT 0.0 % (0.0-0.2); PLATELET COUNT,PLT 188 K/mm3 (150-400); RED BLOOD CELL COUNT 5.10 M/mm3 (4.52-5.90); WHITE BLOOD CELL COUNT,WBC 8.40 K/mm3 (3.9-11.3)
[2025-06-21 08:57] LABS: A/G RATIO 0.9 (1-2); ALANINE AMINOTRANSFERASE,ALT 32.0 U/L (16-63); ASPARTATE AMNIOTRANSFERASE,AST 17.0 U/L (15-37); BILIRUBIN TOTAL 1.2 mg/dL (0.2-1.0); BLOOD UREA NITROGEN,BUN 18.0 mg/dL (7-18); CARBON DIOXIDE,CO2 29.0 mEq/L (21-32); CHLORIDE,CL 104.0 mEq/L (98-107); CREATININE 0.9 mg/dL (0.7-1.3); EST CRCL DRUG DOSING (CG) 108.51 mL/min; ESTIMATED GFR 103.0 mL/min (>60); GLUCOSE RANDOM 106.0 mg/dL (70-99); POTASSIUM,K 4.0 mEq/L (3.5-5.1); PROTEIN TOTAL,TP 6.5 g/dl (6.4-8.2); SODIUM,NA 138.0 mEq/L (136-145)
== END 2025-06-21 10:02 | disposition home or self-care (01) ==
LOC: JD.ED 07:18
DX: K57.32 Diverticulitis of large intestine without perforation or abscess without bleeding (principal); I10 Essential (primary) hypertension; E78.00 Pure hypercholesterolemia, unspecified; E66.9 Obesity, unspecified; Z88.5 Allergy status to narcotic agent; Z79.899 Other long term (current) drug therapy; Z86.16 Personal history of COVID-19; Z90.49 Acquired absence of other specified parts of digestive tract; Z68.41 Body mass index [BMI] 40.0-44.9, adult
CPT/HCPCS: 36415; 74177; 80053; 83690; 85025; 96360; 99284; J7030; Q9967; 99283

== ENCOUNTER 2025-06-26 15:31 | Emergency (ER) | payer BC ==
[2025-06-26 16:24] LABS: APPEARANCE,URINE CLEAR (Clear); GLUCOSE,URINE NEGATIVE (Negative); OCCULT BLOOD,URINE NEGATIVE (Negative)
[2025-06-26 16:31] LABS: BUPRENORPHINE SCREEN,URINE NEGATIVE (CUTOFF=10); METHADONE SCREEN, URINE NEGATIVE (CUT0FF=200); METHAMPHETAMINES SCREEN, URINE NEGATIVE (CUTOFF=500); OXYCODONE SCREEN,URINE NEGATIVE (CUT0FF=100); THC SCREEN,URINE 20 NG/ML NEGATIVE (CUTOFF=50)
[2025-06-26 16:33] LABS: AMPHETAMINES SCREEN, URINE NEGATIVE (CUTOFF=500)
[2025-06-26 16:39] LABS: EPITHELIAL CELLS,URINE 0-5 /hpf (0-5)
== END 2025-06-26 16:50 | disposition home or self-care (01) ==
LOC: JD.ED 15:31
DX: K57.32 Diverticulitis of large intestine without perforation or abscess without bleeding (principal); I10 Essential (primary) hypertension; E78.00 Pure hypercholesterolemia, unspecified; Z86.16 Personal history of COVID-19; Z88.5 Allergy status to narcotic agent; Z79.899 Other long term (current) drug therapy
CPT/HCPCS: 80306; 81001; 99284

== ENCOUNTER 2025-08-17 10:49 | Emergency (ER) | payer BC ==
[2025-08-17 12:28] LABS: BASOPHILS ABSOLUTE AUTO 0.0 K/mm3 (0.0-0.2); BASOPHILS PERCENT AUTO 0.5 % (0.0-1.0); EOSINOPHILS ABSOLUTE AUTO 0.3 K/mm3 (0.0-0.4); EOSINOPHILS PERCENT AUTO 3.8 % (0.0-6.0); IMMATURE GRAN ABSOLUTE AUTO 0.14 K/mm3 (0.00-0.05); IMMATURE GRAN PERCENT AUTO 1.8 % (0.0-0.4); LYMPHOCYTES ABSOLUTE AUTO 1.7 K/mm3 (1.0-4.8); LYMPHOCYTES PERCENT AUTO 22.5 % (24.0-44.0); MEAN PLATELET VOLUME 9.0 fl (9.4-12.4); MONOCYTES ABSOLUTE AUTO 1.0 K/mm3 (0.0-0.8); MONOCYTES PERCENT AUTO 13.3 % (0.0-8.0); NEUTROPHILS ABSOLUTE AUTO 4.4 K/mm3 (1.8-7.7); NEUTROPHILS PERCENT AUTO 58.1 % (41.0-71.0); NRBC ABSOLUTE 0.00 (0.00-0.02); NRBC PERCENT 0.0 % (0.0-0.2); RED BLOOD CELL COUNT 4.63 M/mm3 (4.52-5.90); WHITE BLOOD CELL COUNT,WBC 7.59 K/mm3 (3.9-11.3)
[2025-08-17 12:29] LABS: PLATELET COUNT,PLT 267 K/mm3 (150-400)
[2025-08-17] MEDS: Iopamidol 755 Mg/ML 100 ML Bottle IVPUSH ONE (12:31)
[2025-08-17] MEDS: Sodium Chloride 0.9% 10 ML Syringe FLUSH PRN (12:31)
[2025-08-17 12:58] LABS: A/G RATIO 0.8 (1-2); ALANINE AMINOTRANSFERASE,ALT 48.0 U/L (16-63); ASPARTATE AMNIOTRANSFERASE,AST 32.0 U/L (15-37); BILIRUBIN TOTAL 1.7 mg/dL (0.2-1.0); BLOOD UREA NITROGEN,BUN 15.0 mg/dL (7-18); CARBON DIOXIDE,CO2 28.0 mEq/L (21-32); CHLORIDE,CL 102.0 mEq/L (98-107); CREATININE 0.8 mg/dL (0.7-1.3); EST CRCL DRUG DOSING (CG) 125.58 mL/min; ESTIMATED GFR 106.0 mL/min (>60); GLUCOSE RANDOM 95.0 mg/dL (70-99); POTASSIUM,K 4.3 mEq/L (3.5-5.1); PROTEIN TOTAL,TP 7.3 g/dl (6.4-8.2); SODIUM,NA 138.0 mEq/L (136-145); TROPONIN I HIGH SENSITIVITY 6.0 pg/mL (<=76)
== END 2025-08-17 14:50 | disposition home or self-care (01) ==
LOC: JD.ED 10:49
DX: R06.00 Dyspnea, unspecified (principal); L76.32 Postprocedural hematoma of skin and subcutaneous tissue following other procedure; I10 Essential (primary) hypertension; E78.00 Pure hypercholesterolemia, unspecified; E66.9 Obesity, unspecified; Z86.16 Personal history of COVID-19; Z79.899 Other long term (current) drug therapy; Z88.5 Allergy status to narcotic agent; Z68.37 Body mass index [BMI] 37.0-37.9, adult
CPT/HCPCS: 36415; 71275; 80053; 83880; 84484; 85025; 93005; 99285; Q9967; 93010; 99283